=== PATIENT | female | born 1945 | race Caucasian/White ===

== ENCOUNTER 2018-10-24 01:18 | Outpatient (CLI) | payer MEDICARE, SELFPAY ==
--- NOTE | 2018-10-24 14:44 | DI.CTLCSR_ITS ---
SYMPTOM/DIAGNOSIS: TOBACCO USE DISORDER, F17.209, SMOKER, F17.210, Z87.[address]: Comparison is made with 10/17/17. Aortic and coronary artery calcifications are seen. There is mild left ventricular and left atrial enlargement. No pleural or pericardial effusions are seen. There is no evidence of adenopathy. The visualized portions of the upper abdomen are unremarkable. There are mild changes of centrilobular emphysema. No infiltrates are present. There is a stable tiny peripheral nodule in the left lower lobe. No new nodules are seen. There are no suspicious bony abnormalities. IMPRESSION: Lung Rads, category 2, continued annual low dose screening CT is recommended. Lung-RAD Category: Lung RADS Category 2- Benign Appearance/Behavior Lung- RAD Management of Findings: (follow-up) Continue annual LDCT screening in 12 months
== END 2018-10-24 01:38 ==
PROVIDERS: PCP Family Medicine; Visit Provider Family Medicine
DX: Z12.2 Encounter for screening for malignant neoplasm of respiratory organs (principal); F17.210 Nicotine dependence, cigarettes, uncomplicated; I51.7 Cardiomegaly
CPT/HCPCS: G0297

== ENCOUNTER 2018-11-07 00:25 | Outpatient (CLI) | payer MEDICARE, SELFPAY ==
--- NOTE | 2018-11-07 13:19 | DI.MAMMO_ITS ---
SYMPTOM/DIAGNOSIS: SCREENING, Z12.31 MAMMOGRAMS: Mammograms were interpreted according to the usual protocol including computer analysis with CAD system, tomosynthesis and C view imaging. The breast tissue is of moderate radiodensity. There is no evidence of a mass. There are no suspicious calcifications and there has been no significant interval change when compared with prior images. SUMMARY: No evidence of malignancy, category 1. Yearly screening mammography is recommended. Breast density, category B. SA ASSESSMENT OF FINDINGS: Negative. Category 1. Patient will receive a letter notifying them of these results. BI-RADS category B. There are scattered areas of fibroglandular density.
== END 2018-11-07 00:45 ==
PROVIDERS: PCP Family Medicine; Visit Provider Family Medicine
DX: Z12.31 Encounter for screening mammogram for malignant neoplasm of breast (principal)
CPT/HCPCS: 77063; 77067

== ENCOUNTER 2020-01-04 03:49 | Outpatient (CLI) | payer MEDICARE, SELFPAY ==
--- NOTE | 2020-01-04 13:00 | DI.CTLCSR_ITS ---
EXAM: CT CHEST LUNG CANCER SCREEN CLINICAL HISTORY: SMOKER, F17.210 TECHNIQUE: COMPARISON: CT CT CHEST LUNG CANCER SCREEN from 10/24/2018 FINDINGS: CT examination of the chest was performed utilizing low-dose lung cancer screening protocol without c ontrast administration. Examination is compared with prior chest CT of October 24, 2018. Previous exam ination showed a 3 millimeter left lower lobe nodule. This nodule is again noted and unchanged in co mparison with the prior study. Very faint ground-glass opacity noted in the lingula, unchanged from prior study. No new nodule or consolidation seen. Moderate diffuse central lobular emphysema again noted. There is no evident mediastinal or hilar adenopathy. Tracheobronchial tree appears intact. No pleur al effusion. Thoracic aorta is of normal diameter. Coronary artery calcifications are noted. No ca rdiomegaly. Visualized portions of the liver, spleen, pancreas, adrenals, and kidneys are unremarkable. IMPRESSION: 3 millimeter stable left lower lobe intrapulmonary nodule. Lung RADS Cat 2 - Benign Appearance / Behavior: Nodules with a very low likelihood of becoming a clin ically active caner due to size or lack of growth Resume annual screening with low-dose chest CT in 12 months.
--- NOTE | 2020-01-04 13:15 | DI.DEXA_ITS ---
EXAM: XR DEXA BONE DENSITY W/WO LORRIE CLINICAL HISTORY: SCREENING FOR OSTEOPOROSIS, Z78.0,[facility],Z00.00 TECHNIQUE: COMPARISON: No exams were available for comparison FINDINGS: DEXA scan was performed according to the usual protocol. Please see the accompanying data sheets. Findings for lumbar spine scanning are T-score -0.7 prior study of February 2013 showed lumbar T-score -0 .2. Findings for left hip scanning are T-score -1.5 with left femoral neck T-score -1.9. Prior study of February 2013 showed left hip T-score -0.8. Left forearm scanning shows T-score -0.4, prior study of February 2013 showed left forearm T-score 0.2. IMPRESSION: Findings consistent with osteopenia according to the WHO criteria. The lateral vertebral scanogram shows no evidence of a vertebral compression fracture.
== END 2020-01-04 04:09 ==
PROVIDERS: PCP Family Medicine; Visit Provider Family Medicine
DX: Z12.2 Encounter for screening for malignant neoplasm of respiratory organs (principal); F17.210 Nicotine dependence, cigarettes, uncomplicated; R91.1 Solitary pulmonary nodule; J43.8 Other emphysema; M85.88 Other specified disorders of bone density and structure, other site; Z78.0 Asymptomatic menopausal state
CPT/HCPCS: 77080; G0297

== ENCOUNTER 2020-03-27 11:12 | Outpatient (REF) | payer MEDICARE, SELFPAY ==
[2020-03-27 14:57] LABS: ALT 36 U/L (14-59); AST 27 U/L (15-37); Alkaline Phosphatase 73 U/L (46-116); BUN 10 mg/dL (7-18); Bilirubin, Total 0.7 mg/dL (0.2-1.0); CREATININE 0.63 mg/dL (0.55-1.02); Calcium 9.6 mg/dL (8.5-10.1); Chloride 102 mmol/L (98-107); Glucose 98 mg/dL (74-106); Potassium 4.2 mmol/L (3.5-5.1); Sodium 141 mmol/L (136-145); TSH (W/Ref FT4) 0.91 uIU/mL (0.36-3.74); Total Protein 7.6 g/dL (6.4-8.2)
[2020-03-27 15:10] LABS: Vitamin D 25 Total 23.9 ng/ml (30-100)
[2020-03-28 09:12] LABS: Parathyroid Hormone,Intact 50 pg/mL (19-88)
== END 2020-03-27 11:32 ==
LOC: NCHCN 11:12
PROVIDERS: PCP Family Medicine; Visit Provider Family Medicine
DX: L65.9 Nonscarring hair loss, unspecified (principal); M85.80 Other specified disorders of bone density and structure, unspecified site
CPT/HCPCS: 80053; 82306; 83970; 84100; 84443

== ENCOUNTER 2020-04-11 04:02 | Outpatient (CLI) | payer MEDICARE, SELFPAY ==
--- NOTE | 2020-04-11 | DI.US_ITS ---
EXAM: US PELVIS TRANSVAGINAL CLINICAL HISTORY: LLQ ABD PAIN,R10.32,INTERMITTENT FULLNESS, BLOATING, TECHNIQUE: Transabdominal and transvaginal imaging was performed using standard protocol. COMPARISON: US PELVIS TRANSVAG from 03/06/2013 CT CHEST - LUNG CANCER SCREENING from 10/17/2017 FINDINGS: KIDNEYS: Kidneys are symmetric in size. No evidence of renal calculi. No evidence of hydronephrosis. No renal mass or cyst identified. UTERUS: Anteverted. Uterus measures 6.0 x 2.7 x 3.9 cm. Endometrium: Less than 2 millimeters in thickness. 4 x 5 millimeter subendometrial cyst is seen. Myometrium: Unremarkable. Cervix: Unremarkable. OVARIES: Right: Cyst or mass: None. Left: Cyst or mass: None. DOPPLER: Color: Symmetric and uniform flow to both ovaries. No hyperemia. Duplex: Normal ovarian arterial waveforms visualized. CUL-DE-SAC: Free fluid: None. IMPRESSION: Small subendometrial cyst. No endometrial thickening. No ovarian cyst or mass. DATA REPOSITORY:
== END 2020-04-11 04:22 ==
PROVIDERS: PCP Family Medicine; Visit Provider Family Medicine
DX: N85.8 Other specified noninflammatory disorders of uterus (principal)
CPT/HCPCS: 76830; 76856

== ENCOUNTER 2020-04-16 01:11 | Outpatient (CLI) | payer MEDICARE, SELFPAY ==
--- NOTE | 2020-04-16 | DI.MAMMO_ITS ---
EXAM: MAMMO SCREENING CLINICAL HISTORY: SCREENING, [facility],Z00.00 TECHNIQUE: Mammograms were interpreted according to the usual protocol including computer analysis w [employer] CAD system, tomosynthesis and C-view imaging. COMPARISON: FINDINGS: The breasts are of moderate density with fairly symmetrical distribution fibroglandular tissue. No d ominant mass or clumped microcalcification is identified in either breast. The current examination i s compared with previous examinations including October 2018 and there has been no gross interval mckinney e in appearance in comparison with the prior studies. IMPRESSION: No specific evidence of malignancy at this time. Routine screening examinations are suggested at ye britney intervals due to the family history of breast carcinoma. BI-RADS Cat 1 - Negative Breast Density - Category B - Scattered areas of fibroglandular density
== END 2020-04-16 01:31 ==
PROVIDERS: PCP Family Medicine; Visit Provider Family Medicine
DX: Z12.31 Encounter for screening mammogram for malignant neoplasm of breast (principal)
CPT/HCPCS: 77063; 77067

== ENCOUNTER 2020-10-06 17:21 | Outpatient (REF) | payer MEDICARE, SELFPAY | END 2020-10-06 17:22 | disposition home or self-care (01) | LOC: NCHCN 17:21 | PROVIDERS: PCP Family Medicine; Visit Provider Family Medicine | DX: E55.9 Vitamin D deficiency, unspecified (principal) | CPT/HCPCS: 82306 ==

== ENCOUNTER 2021-04-09 09:39 | Outpatient (REF) | payer MEDICARE, SELFPAY ==
[2021-04-09 14:59] LABS: HCT 41.3 % (36.0-46.0); HGB 13.8 g/dL (11.2-15.7); MCHC 33.4 % (32.0-36.0); MCV 95.8 fL (80-95); MPV 10.3 fL (8.0-11.0); Platelet Count 258 10^3/uL (130-400); RBC 4.31 10^6/uL (3.93-5.22); RDW 11.8 % (11.7-14.6); RDW-SD 41.6 fL; WBC 7.48 10^3/uL (4.4-10.8)
[2021-04-09 15:09] LABS: ALT 31 U/L (14-59); AST 27 U/L (15-37); Albumin 3.9 g/dL (3.4-5.0); Alkaline Phosphatase 76 U/L (46-116); Anion Gap 10.3 mmol/L (3-11); BUN 14 mg/dL (7-18); Bilirubin, Total 0.5 mg/dL (0.2-1.0); CO2 28.7 mmol/L (21.0-32.0); CREATININE 0.7 mg/dL (0.55-1.02); Calcium 9.5 mg/dL (8.5-10.1); Calculated LDL 90 mg/dL (<100); Chloride 103 mmol/L (98-107); Cholesterol 186 mg/dL (<200); Glucose 90 mg/dL (74-106); HDL Cholesterol 66 mg/dL (40-60); Potassium 4.3 mmol/L (3.5-5.1); Sodium 142 mmol/L (136-145); Total Protein 7.5 g/dL (6.4-8.2); Triglyceride 154 mg/dL (<150)
[2021-04-09 15:29] LABS: Vitamin D 25 Total 44.1 ng/mL (30-100)
== END 2021-04-09 09:40 | disposition home or self-care (01) ==
LOC: LBN 09:39
PROVIDERS: PCP Family Medicine; Visit Provider Family Medicine
DX: E55.9 Vitamin D deficiency, unspecified (principal); F10.10 Alcohol abuse, uncomplicated; M85.80 Other specified disorders of bone density and structure, unspecified site; E78.89 Other lipoprotein metabolism disorders; Z87.11 Personal history of peptic ulcer disease
CPT/HCPCS: 80053; 80061; 82306; 85027; 85025

== ENCOUNTER → 2021-06-24 00:54 | Outpatient (CLI) | payer MEDICARE, SELFPAY ==
--- NOTE | 2021-06-24 09:15 | DI.CTLCSR_ITS ---
Exam(s) CT CHEST LUNG CANCER SCREEN EXAM: CT CHEST LUNG CANCER SCREEN CLINICAL HISTORY: SMOKER F17.210 SMALL NODULE 09/2017,SCREENING FOR LUNG CA. TECHNIQUE: Imaging Protocol: Low Dose Technique CONTRAST MATERIAL: None COMPARISON: CT CHEST - LUNG CANCER SCREENING from 10/17/2017 CT CHEST - LUNG CANCER SCREENING from 10/17/[address] CHEST LUNG CANCER SCREEN from 01/04/2020 FINDINGS: CHEST: LUNGS: 2 small nodules in the left lower lobe, both measuring 3 millimeters, remain unchanged. Also again stable is a ground-glass infiltrate in the left upper lobe which measures approximately 1.5 by 1.4 cm. There are no significant findings in the opposite-right lung. There are no pleural effusion s on either side. No focal findings in trachea and mainstem bronchi. MEDIASTINUM: There is no obvious hilar nor mediastinal adenopathy. CARDIAC: Heart size is normal. There is no pericardial effusion.Coronary artery calcification is not ed. Caliber thoracic aorta is upper normal. OTHER: OSSEOUS: No significant osseous lesions.. IMPRESSION: 1. Continued stable appearance of the 3 findings in the left lung, including two 3 millimeter left lo wer lobe nodules and an unchanged 15 x 14 millimeter ground-glass nodular infiltrate in the left uppe r lobe. 2. No pleural effusions nor intrathoracic adenopathy. Coronary artery calcification noted. 3. Lung RADS Cat 2 - Benign Appearance / Behavior: Nodules with a very low likelihood of becoming a c linically active cancer due to size or lack of growth Lung-RADS 1.0 CATEGORIES: Category 0 - Prior chest CT exam(s) being located for comparison. Category 1 - Annual screening in 12 months. No nodules or definitely benign nodules. Category 2 - Annual screening in 12 months. Benign appearance. Nodules with low likelihood of becomin g active cancer. Category 3 - 6-month follow-up. Probably benign. Short-term follow-up suggested. Nodules with low lik elihood of becoming active cancer. Category 4A - 3-month follow-up and CT/PET if >8 mm in size. Suspicious finding. Findings which requi re additional testing. Category 4B - Findings which require additional testing and tissue sampling. Modifier S- Potentially clinically significant findings (non lung cancer) RADIATION DOSE DELIVERED: 72.62mGy.cm Total DLP 1.84mGy CTDIvol DATA REPOSITORY: All CT scans at this facility are submitted to the National Radiology Data Registry (NRDR) Dose Index Registry (DIR) with the [employer] (ACR). RADIATION OPTIMIZATION: All CT scans at this facility use at least one of these dose optimization te chniques: automated exposure control; mA and/or kV adjustment per patient size (includes targeted exa ms where dose is matched to clinical indication); or iterative reconstruction.
== END ==
PROVIDERS: PCP Family Medicine; Visit Provider Family Medicine
DX: F17.210 Nicotine dependence, cigarettes, uncomplicated (principal); Z12.2 Encounter for screening for malignant neoplasm of respiratory organs; R91.8 Other nonspecific abnormal finding of lung field
CPT/HCPCS: 71271

== ENCOUNTER → 2022-06-28 01:39 | Outpatient (CLI) | payer MEDICARE, SELFPAY ==
--- NOTE | 2022-06-28 08:45 | DI.MAMMO_ITS ---
Exam(s) MAMMO SCREENING EXAM: MAMMO SCREENING CLINICAL HISTORY: SCREENING, Z12.31. TECHNIQUE: Bilateral full field digital CC and MLO mammographic images were obtained with 3D tomosyn thesis and utilizing computer aided detection (CAD). COMPARISON: Prior mammograms were reviewed. FINDINGS: There are no new spiculated masses nor malignant appearing microcalcification groups. Asymmetric density in the left breast is unchanged from prior studies. There is no significant architectural distortion nor skin thickening-retraction. IMPRESSION: No radiographic evidence of malignancy. BI-RADS Category 1 - Negative Breast Density - Category B - Scattered areas of fibroglandular density Breast density Category C or D implies that the patient has dense breast tissue. Dense breast tissue can make it harder to find cancer on a mammogram. Dense breast tissue is also associated with an incr eased risk of breast cancer. This information about the result of the mammogram report was provided to the patient to raise their awareness. Use this report when you speak with the patient about their risks for breast cancer, which includes their family history. At that time, you may recommend additional screening tests (Ultrasoun d or MRI) as these tests may add significant information. A negative radiographic report should not delay biopsy if a dominant or clinically suspicious mass is present. Up to ten percent of cancers are not identified on mammography. A negative report may reinforce clinical impression. Adenosis and dense breasts may obscure an underlying neoplasm. False positive reports average 6 to 10%. Patient will receive a letter notifying them of these results.
--- NOTE | 2022-06-28 09:15 | DI.CTLCSR_ITS ---
Exam(s) CT CHEST LUNG CANCER SCREEN EXAM: CT CHEST LUNG CANCER SCREEN CLINICAL HISTORY: CIGARETTE SMOKER, F17.210. TECHNIQUE: Imaging Protocol: Low Dose Technique CONTRAST MATERIAL: None COMPARISON: CT CT CHEST LUNG CANCER SCREEN from 06/24/2021 FINDINGS: CHEST: LUNGS: There is continued stability of the ground-glass 1.5 x 1.4 cm infiltrate in the left upper lob e. In addition, there is also continued stability in the small previously described 3 millimeter nod ule in the left lower lobe.. There are no new additional nodules nor new infiltrates in either lung field and there are no pleural effusions. No new findings in the trachea and mainstem bronchi.. MEDIASTINUM: There is no obvious hilar nor mediastinal adenopathy. CARDIAC: Heart size is normal. There is no pericardial effusion.Caliber of the thoracic aorta is wit hin normal limits. OTHER: OSSEOUS: No significant osseous lesions.. IMPRESSION: 1. There is continued stable appearance of the previously described left lung findings described abov e. There are no new focal findings in either lung field and there are no pleural effusions nor intra thoracic adenopathy. 2. Lung RADS Cat 2 - Benign Appearance / Behavior: Nodules with a very low likelihood of becoming a c linically active cancer due to size or lack of growth Lung-RADS 1.0 CATEGORIES: Category 0 - Prior chest CT exam(s) being located for comparison. Category 1 - Annual screening in 12 months. No nodules or definitely benign nodules. Category 2 - Annual screening in 12 months. Benign appearance. Nodules with low likelihood of becomin g active cancer. Category 3 - 6-month follow-up. Probably benign. Short-term follow-up suggested. Nodules with low lik elihood of becoming active cancer. Category 4A - 3-month follow-up and CT/PET if >8 mm in size. Suspicious finding. Findings which requi re additional testing. Category 4B - Findings which require additional testing and tissue sampling. Category 4X - Category 3 or 4 nodules with additional features or imaging findings that increases the suspicion of malignancy. Modifier S- Potentially clinically significant findings (non lung cancer) RADIATION DOSE DELIVERED: 72.78mGy.cm Total DLP !Error 1.84mGyCTDIvol DATA REPOSITORY: All CT scans at this facility are submitted to the National Radiology Data Registry (NRDR) Dose Index Registry (DIR) with the [employer] (ACR). RADIATION OPTIMIZATION: All CT scans at this facility use at least one of these dose optimization te chniques: automated exposure control; mA and/or kV adjustment per patient size (includes targeted exa ms where dose is matched to clinical indication); or iterative reconstruction.
== END ==
PROVIDERS: PCP Family Medicine; Visit Provider Family Medicine
DX: F17.210 Nicotine dependence, cigarettes, uncomplicated (principal); Z12.2 Encounter for screening for malignant neoplasm of respiratory organs; R91.8 Other nonspecific abnormal finding of lung field; Z12.31 Encounter for screening mammogram for malignant neoplasm of breast
CPT/HCPCS: 71271; 77063; 77067

== ENCOUNTER 2022-10-05 13:29 | Emergency (ER) | payer MEDICARE, SELFPAY ==
[2022-10-05 13:41] VITALS: BP 138/66; PULSE 67; RESP 18; TEMP 36.2; O2SAT 97
--- NOTE | 2022-10-05 13:45 | DI.RAD_ITS ---
Exam(s) XR WRIST RT COMPLETE EXAM: XR WRIST RT COMPLETE CLINICAL HISTORY: injury/pain. TECHNIQUE: 2D digital imaging was performed. COMPARISON: No exams were available for comparison FINDINGS: 3 views No evidence of acute fracture or dislocation. No significant ulnar variance. Scaphoid unremarkable. No obvious degenerative changes. No erosions. Bone density is age-appropriate. IMPRESSION: No acute osseous findings. DATA REPOSITORY: RADIATION DOSE DELIVERED:
--- NOTE | 2022-10-05 14:10 | ED.GENADUL_ITS ---
Discharge Plan Disposition Patient Disposition: Home Condition: Stable Discharge Details Clinical Impression: Contusion of right wrist Primary Care Provider: Gisela Diaz ED Provider: Parker Kramer Home Meds and New Rx's Prescriptions: Continued citalopram 10 MG tablet 10 mg PO DAILY oxybutynin chloride [Ditropan XL] 5 MG tablet extended release 24hr 10 mg PO DAILY omeprazole 20 MG capsule,delayed release(DR/EC) 20 mg PO DAILY acetaminophen [Tylenol] 325 MG tablet 650 mg PO Q6H PRN atorvastatin 20 mg tablet 20 mg Patient Comments: Take 1 tablet by mouth every evening cholecalciferol (vitamin D3) 50 mcg (2,000 unit) capsule 2,000 Patient Comments: TAKE ONE CAPSULE BY MOUTH DAILY Discharge Instructions Instructions: Contusion in Adults (ED) Additional Instructions: X-ray is unremarkable. Wear splint as needed, advance activity as tolerated. Cool compresses every 2 hours for 20 minutes. Rest and elevate as tolerated. Please watch for new or worsening symptoms and return to the ER for any concerns. Waho-ple-arcumcn Tylenol as directed for discomfort. Lastly, if symptoms are persisting for the next 5-7 days I recommend outpatient follow-up with your primary care provider and discuss outpatient x-ray as repeat x-ray may be indicated. Medical Decision Making This is a 77-year-old female otherwise healthy, reports 2 separate injuries to her right wrist both and Tuesday for sitting on a jar and then knocking it on a door jam. Neuro, vascular, tendon intact. Plan to obtain x-ray and reassess X-ray unremarkable Discussed x-ray findings with patient. Placed into a universal wrist splint. Standard discharge and return precautions were provided. Patient understands, is agreeable to this plan, and has no additional questions or concerns upon discharge. This documentation was generated using [email or web address] system, please disregard any oddities of phrase or misspellings. Medical Records Medical records reviewed: Yes I reviewed the patient's medical records. Imaging Data Radiologic Study: Attestation: I personally reviewed and interpreted this imaging study as follows: Imaging: X-Ray Radiologist's impression: Exam(s) XR WRIST RT COMPLETE EXAM: XR WRIST RT COMPLETE CLINICAL HISTORY: injury/pain. TECHNIQUE: 2D digital imaging was performed. COMPARISON: No exams were available for comparison FINDINGS: 3 views No evidence of acute fracture or dislocation. No significant ulnar variance. Scaphoid unremarkable. No obvious degenerative changes. No erosions. Bone density is age-appropriate. IMPRESSION: No acute osseous findings. HPI General Mode of arrival: ambulatory . Date/Time Provider Initiated Documentation: 10/05/22 13:53 . Limitations to Documentation: no limitations . Information obtained by: patient . HPI Narrative: This is a 77-year-old female who denies significant past medical history, suftu-aqqi-[id number], who was attempting to open a jar on and went to smack the bottom of the can, missed, directly striking her wrist, subsequently the day after hit her wrist on a door jam, overall reports her symptoms are improving but came to the ER to be sure there is nothing more seriously wrong. She denies any other injuries, numbness, tingling, weakness. Has not taken any nerx-yuy-ecdujcm medication for her symptoms. She went to the store to buy an ytly-kqi-cbplrwc splint but bought the splint for the wrong wrist. Related Data Home Medications Medication Instructions Recorded Confirmed Ditropan XL 5 mg tablet,extended 10 mg PO DAILY 04/16/13 12/14/17 release (oxybutynin chloride) citalopram 10 mg tablet 10 mg PO DAILY 04/16/13 10/05/22 omeprazole 20 mg capsule,delayed 20 mg PO DAILY 04/16/13 10/05/22 release Tylenol 325 mg tablet 650 mg PO Q6H PRN 12/02/17 10/05/22 (acetaminophen) atorvastatin 20 mg tablet 20 mg 10/05/22 cholecalciferol (vitamin D3) 50 2,000 10/05/22 mcg (2,000 unit) capsule Allergies Allergy/AdvReac Type Severity Reaction Status Date / Time No Known Allergies Allergy Unverified 10/05/22 13:49 General Stated Complaint: Orthopedic JOE: 4 Review of Systems Constitutional Constitutional: Denies fever(s) and Denies weakness Musculoskeletal Musculoskeletal: Denies deformity, Reports arthralgias, Reports joint swelling, Denies numbness, Reports stiffness and Denies tingling Integumentary/Breasts Skin/Breast: Denies rash Neurologic Neurologic: Denies numbness, Denies tingling and Denies weakness PFSH All Active Problems (Updated 10/05/22 @ 15:01 by PETER Moe) Epigastric pain (Acute) Contusion of right wrist (Acute) Medical History Abnormal weight loss Anxiety Dysplasia of cervix GERD (gastroesophageal reflux disease) History of adenomatous polyp of colon History of gastric ulcer History of melanoma Malignant melanoma of left hip Tobacco use disorder Urinary incontinence Urinary incontinence, mixed Surgical History Colonoscopy - MAC (12/14/17) Dilation and curettage EGD (05/14/16) Ligation of fallopian tube Social History Smoking/Tobacco Use Status: Current every day Smoking risk assessment performed?: Yes Alcohol Intake: current Alcohol Intake frequency: 3 or more drinks per day Alcohol type: wine Drug use: Current Sobriety Substance use type: marijuana Do you feel safe at home: Yes Do you feel safe in your relationship?: Yes Exam Const General: cooperative, healthy appearing, comfortable and no acute distress Orientation: alert and awake HENPR Head: normal to inspection, normocephalic and atraumatic Eyes Conjunctivae: conjunctivae normal Neck Neck: normal visual inspection, trachea midline and supple Resp Effort & Inspection: normal respiratory effort and able to speak in complete sentences Cardio Rate: regular rate Rhythm: regular rhythm Skin General skin exam: no rashes or lesions noted Neuro General: patient alert, patient awake, moves all extremities and no focal motor deficits Cognition: normal cognition Speech: speech normal Gait: normal gait Motor: muscle tone normal throughout Sensory Exam: no sensory deficits noted Extrem General: full ROM and capillary refill normal Elbow/forearm/wrist images: 1. Diffuse mild tenderness, ecchymosis, minimal swelling. Skin intact. Neuro, vascular, tendon intact. No deformity or bony point tenderness. No anatomical snuffbox point tenderness. Normal capillary refill and radial pulse. Psych Appearance: grossly normal Mental Status: mental status grossly normal Course Vital Signs Vital signs: Vital Signs Temperature 36.2 C L 10/05/22 13:41 Pulse 67 10/05/22 13:41 Respiratory Rate 18 10/05/22 13:41 Blood Pressure 138/66 10/05/22 13:41 Pulse Oximetry 97 10/05/22 13:41 Temperature 36.2 C L 10/05/22 13:41 Temperature Source Tympanic 10/05/22 13:41 Pulse 67 10/05/22 13:41 Respiratory Rate 18 10/05/22 13:41 Respiratory Effort Normal 10/05/22 13:47 Blood Pressure 138/66 10/05/22 13:41 Blood Pressure Position Sitting 10/05/22 13:41 Pulse Oximetry 97 10/05/22 13:41 Oxygen Delivery Method Room Air 10/05/22 13:41 Oxygen Flow Rate 0 10/05/22 13:41 Pain Level 7 10/05/22 13:41 PAWSS Have you Been Recently Intoxicated or Drunk Within the Last 30 days?: No Have you Ever Experienced Previous Episodes of Alcohol Withdrawal?: No Have you ever Experienced Withdrawal Seizures?: No Have you ever Experienced Delirium Tremens(DT)s?: No Have you ever undergone Alcohol Rehabilitation Treatment (i.e, inpt ot outpat ient treatment programs)?: No Have you ever Experienced Blackouts?: No Have you ever Combined Alcohol with other Downers within the last 90 days?: No Have you ever Combined Alcohol with any other Substance of Abuse during the last 90 days?: No Positive Blood Alcohol level on Presentation? [PCS.BAL]: No Evidence of Increased Autonomic Activity (i.e. HR>120, tremor, sweating, carley tation, nausea)?: No Result: 0
[2022-10-05 14:53] VITALS: BP 131/75; PULSE 64; RESP 16; TEMP 36.7; O2SAT 97
== END 2022-10-05 15:18 | disposition home or self-care (01) ==
PROVIDERS: Emergency Provider Physician Assistant; PCP Family Medicine
DX: S60.211A Contusion of right wrist, initial encounter (principal); W22.8XXA Striking against or struck by other objects, initial encounter; Y93.89 Activity, other specified
CPT/HCPCS: 99283; 73110; 99282

== ENCOUNTER 2023-03-05 13:33 | Outpatient (REF) | payer MEDICARE, SELFPAY ==
[2023-03-05 17:05] LABS: Abs Immature Grans 0.02 10^3/uL (0.0-0.06); Absolute Basophil Count 0.03 10^3/uL (0.0-0.2); Absolute Eosinophil Count 0.07 10^3/uL (0.0-0.7); Absolute Lymphocyte Count 1.19 10^3/uL (1.2-3.4); Absolute Monocyte Count 1.13 10^3/uL (0.1-0.8); Absolute Neutrophil Count 4.38 10^3/uL (1.2-6.7); Basophils % 0.4; HCT 37.8 % (36.0-46.0); HGB 13.1 g/dL (11.2-15.7); Immature Grans % 0.3; Lymphocytes % 17.4; MCH 32.2 pg (27.0-33.0); MCHC 34.7 % (32.0-36.0); MCV 93 fL (80-95); MPV 10.2 fL (8.0-11.0); Monocytes % 16.6; Neutrophils % 64.3; Platelet Count 234 10^3/uL (130-400); RBC 4.07 10^6/uL (3.93-5.22); RDW 11.7 % (11.7-14.6); RDW-SD 40.2 fL; WBC 6.82 10^3/uL (4.4-10.8)
[2023-03-05 17:17] LABS: ALT 20 U/L (14-59); AST 18 U/L (15-37); Albumin 3.4 g/dL (3.4-5.0); Alkaline Phosphatase 90 U/L (46-116); Anion Gap 8.9 mmol/L (3-11); BUN 3 mg/dL (7-18); Bilirubin, Total 0.4 mg/dL (0.2-1.0); CO2 27.1 mmol/L (21.0-32.0); CREATININE 0.6 mg/dL (0.55-1.02); Calcium 9.2 mg/dL (8.5-10.1); Chloride 103 mmol/L (98-107); Estimated GFR 92.97 (mL/min/1.73m2); Glucose 88 mg/dL (74-106); Lipase 40 U/L (16-77); Potassium 3.6 mmol/L (3.5-5.1); Sodium 139 mmol/L (136-145); Total Protein 6.8 g/dL (6.4-8.2)
== END 2023-03-05 13:34 | disposition home or self-care (01) ==
LOC: LBN 13:33
PROVIDERS: PCP Family Medicine; Visit Provider Nurse Practitioner Family
DX: R19.7 Diarrhea, unspecified (principal)
CPT/HCPCS: 80053; 83690; 85025

== ENCOUNTER 2023-03-13 12:04 | Emergency (ER) | payer MEDICARE, SELFPAY ==
[2023-03-13 12:07] VITALS: BP 122/66; PULSE 60; RESP 18; TEMP 36.8; O2SAT 99
[2023-03-13 13:31] VITALS: BP 125/77; PULSE 53; RESP 20; TEMP 36.3; O2SAT 96
[2023-03-13 13:53] VITALS: BP 134/77; PULSE 73; RESP 16; O2SAT 95
--- NOTE | 2023-03-13 14:00 | DI.CT_ITS ---
Exam(s) CT ABDOMEN PELVIS W EXAM: CT ABDOMEN PELVIS W CLINICAL HISTORY: RLQ abdominal Mass, Abd Pain TECHNIQUE: Imaging Protocol: Axial computed tomography images with coronal and sagittal reformatted images were created and reviewed CONTRAST MATERIAL: Intravenous: Omnipaque 350 Contrast volume:100 mL Oral: No COMPARISON: CT CHEST WITH CONTRAST from 08/24/2016 FINDINGS: ABDOMEN: Lung Bases: Coronary artery calcifications are present. Liver: Normal density. No measurable mass. Portal, Superior Mesenteric, and Splenic Veins: Unremarkable. Gallbladder and Biliary Tract: No radiodense calculus or dilation. Pancreas: Normal density, no abnormal calcifications or inflammatory process. Spleen: Normal. Adrenals: Stable left adrenal nodule likely representing adenoma. Kidneys: Normal size, contour and axis. No radiodense stones or obstructive uropathy. No masses seen. Abdominal Aorta: Abdominal portion non-dilated. Atherosclerosis. Bowel: There is a right inguinal hernia containing a portion of the cecum. There is a question of mi ld bowel wall thickening involving the terminal ileum and cecum. There is a normal appendix present. There is no evidence of bowel obstruction. Peritoneal Cavity: No ascites, collection or mesenteric inflammatory response. No free air. Lymph Nodes: Within normal limits. Bones: Within normal limits for the patient's age. Soft Tissues: There is a small fat containing umbilical hernia. There is a small fat containing left inguinal hernia. PELVIS: Bladder: Symmetric distention, no gross wall thickening. Reproductive Organs: Unremarkable as visualized. Lymph Nodes: Within normal limits. Bones: Within normal limits for the patient's age. IMPRESSION: 1. Right inguinal hernia containing component of the cecum terminal ileum and proximal appendix. The re is question of mild thickening of the wall of the involve cecum and terminal ileum. No evidence o f bowel obstruction. There is a normal appendix. 2. Stable left adrenal nodule likely reflecting an adenoma. No follow-up is recommended. RADIATION DOSE DELIVERED: 520.82mGy.cm Total DLP DATA REPOSITORY: All CT scans at this facility are submitted to the National Radiology Data Registry (NRDR) Dose Index Registry (DIR) with the [employer] (ACR). RADIATION OPTIMIZATION: All CT scans at this facility use at least one of these dose optimization te chniques: automated exposure control; mA and/or kV adjustment per patient size (includes targeted exa ms where dose is matched to clinical indication); or iterative reconstruction.
--- NOTE | 2023-03-13 14:10 | ED.GENADUL_ITS ---
Discharge Plan Discharge Details Chief Complaint: Abd Prob Primary Care Provider: Gisela Diaz ED Provider: Robson Anderson Home Meds and New Rx's Prescriptions: No Action citalopram 10 MG tablet 10 mg PO DAILY oxybutynin chloride [Ditropan XL] 5 MG tablet extended release 24hr 10 mg PO DAILY omeprazole 20 MG capsule,delayed release(DR/EC) 20 mg PO DAILY acetaminophen [Tylenol] 325 MG tablet 650 mg PO Q6H PRN atorvastatin 20 mg tablet 20 mg Patient Comments: Take 1 tablet by mouth every evening cholecalciferol (vitamin D3) 50 mcg (2,000 unit) capsule 2,000 Patient Comments: TAKE ONE CAPSULE BY MOUTH DAILY Medical Decision Making <Vicki Gallegos NP - Last Filed: 03/13/23 17:13> 78-year-old female presents to the ER with a chief complaint of right lower quadrant abdominal mass which she noticed got worse Tuesday or of last week. She was seen at urgent care a week ago Tuesday and was diagnosed with viral gastroenteritis for some diarrhea. The diarrhea has since resolved. She does have a approximately 5 x 5 cm mass palpated to her right lower quadrant which is hard and tender with palpation no surrounding induration erythema. She reports that she did have 10 years of hormone replacement therapy, and last saw [facility] 4 years ago. She denies any problems urinating or burning with urination. Denies any current fever or chills. No other associated symptoms or complaints. Past medical history includes malignant melanoma of left hip, gastric ulcer, adenomatous polyp of colon, GERD, dysplasia of cervix, anxiety and abnormal weight loss. Work-up ordered including CBC CMP, urinalysis CT abdomen pelvis with contrast. BMP was drawn 10 days ago at urgent care. BUN/creatinine in GFR within normal limits. Differential diagnosis includes but not limited to metastatic cancer, ovarian cyst, ovarian torsion, bowel obstruction. Care is to be handed off to oncoming provider Bryce Anderson NP. At the time of signout labs are pending, CT shows hernia. Discussed patient case in details with me he verbalizes understanding. Medical Records Medical records reviewed: Yes I reviewed the patient's medical records. <Robson Anderson NP - Last Filed: 03/13/23 18:24> 78-year-old female presents to the ER with a chief complaint of right lower quadrant abdominal mass which she noticed got worse Tuesday or of last week. She was seen at urgent care a week ago Tuesday and was diagnosed with viral gastroenteritis for some diarrhea. The diarrhea has since resolved. She does have a approximately 5 x 5 cm mass palpated to her right lower quadrant which is hard and tender with palpation no surrounding induration erythema. She reports that she did have 10 years of hormone replacement therapy, and last saw [facility] 4 years ago. She denies any problems urinating or burning with urination. Denies any current fever or chills. No other associated symptoms or complaints. Past medical history includes malignant melanoma of left hip, gastric ulcer, adenomatous polyp of colon, GERD, dysplasia of cervix, anxiety and abnormal weight loss. Work-up ordered including CBC CMP, urinalysis CT abdomen pelvis with contrast. BMP was drawn 10 days ago at urgent care. BUN/creatinine in GFR within normal limits. Differential diagnosis includes but not limited to metastatic cancer, ovarian cyst, ovarian torsion, bowel obstruction. Care is to be handed off to oncoming provider Bryce Anderson NP. At the time of signout labs are pending, CT shows hernia. Discussed patient case in details with me he verbalizes understanding. 1600-please see progress note for further documentation of care HPI <Vicki Gallegos NP - Last Filed: 03/13/23 17:13> General Mode of arrival: ambulatory . Date/Time Provider Initiated Documentation: 03/13/23 13:39 . Information obtained by: patient, RN notes reviewed and old records reviewed . HPI Narrative: 78-year-old female presents to the ER with a chief complaint of right lower quadrant abdominal mass which she noticed got worse Tuesday or of last week. She was seen at urgent care a week ago Tuesday and was diagnosed with viral gastroenteritis for some diarrhea. The diarrhea has since resolved. She does have a approximately 5 x 5 cm mass palpated to her right lower quadrant which is hard and tender with palpation no surrounding induration erythema. She reports that she did have 10 years of hormone replacement therapy, and last saw [facility] 4 years ago. She denies any problems urinating or burning with urination. Denies any current fever or chills. No other associated symptoms or complaints. Past medical history includes malignant melanoma of left hip, gastric ulcer, adenomatous polyp of colon, GERD, dysplasia of cervix, anxiety and abnormal weight loss. Related Data Home Medications Medication Instructions Recorded Confirmed Ditropan XL 5 mg tablet,extended 10 mg PO DAILY 04/16/13 12/14/17 release (oxybutynin chloride) citalopram 10 mg tablet 10 mg PO DAILY 04/16/13 10/05/22 omeprazole 20 mg capsule,delayed 20 mg PO DAILY 04/16/13 10/05/22 release Tylenol 325 mg tablet 650 mg PO Q6H PRN 12/02/17 10/05/22 (acetaminophen) atorvastatin 20 mg tablet 20 mg 10/05/22 cholecalciferol (vitamin D3) 50 2,000 10/05/22 mcg (2,000 unit) capsule Allergies Allergy/AdvReac Type Severity Reaction Status Date / Time No Known Allergies Allergy Unverified 10/05/22 13:49 General Stated Complaint: Abd Prob JOE: 3 Review of Systems <Vicki Gallegos NP - Last Filed: 03/13/23 17:13> All systems reviewed & are unremarkable except as noted in HPI and below Gastrointestinal Gastrointestinal: Reports as per HPI PFSH <Vicki Gallegos NP - Last Filed: 03/13/23 17:13> All Active Problems (Updated 11/05/22 @ 00:02 by PERRI ARAUJO) Epigastric pain (Acute) Medical History Abnormal weight loss Anxiety Dysplasia of cervix GERD (gastroesophageal reflux disease) History of adenomatous polyp of colon History of gastric ulcer History of melanoma Malignant melanoma of left hip Tobacco use disorder Urinary incontinence Urinary incontinence, mixed Surgical History Colonoscopy - MAC (12/14/17) Dilation and curettage EGD (05/14/16) Ligation of fallopian tube Social History Smoking/Tobacco Use Status: Current every day Smoking risk assessment performed?: Yes Alcohol Intake: current Alcohol Intake frequency: 3 or more drinks per day Alcohol type: wine Drug use: Occasionally Substance use type: marijuana Housing: house Do you feel safe at home: Yes Do you feel safe in your relationship?: Yes Exam <Vicki Gallegos NP - Last Filed: 03/13/23 17:13> Narrative Exam Narrative: Constitutional: Alert and oriented x3. Appears stated age. Normal body habitus. Head: Normocephalic, no trauma. Eyes: Pupils PERRL, Red reflex noted, EOM's intact. Eyelids symmetrical without lesions, discharge, or swelling. ENT: Bilateral TM's WNL, External ear normal to inspection, no mastoid TTP, swelling, or erythema, Nasal turbinates WNL, no nasal discharge. Wearing dentures, Posterior pharynx WNL, no exudate. Chest: RRR, Normal S1, S2, distal pulses intact. Resp: Lungs clear to auscultation bilaterally, no wheezes, rales, or rhonchi. Abdomen: Soft, non-distended, hypoactive bowel sounds all 4 quadrants, she does have a large approximately 5 x 5 cm palpable hard mass which is tender to palpation. No ecchymosis no surrounding erythema or induration. Musculoskeletal: Normal gait, 5/5 strength to all four extremities. Skin: No suspicious rashes or lesions. Capillary refill less than 2 sec. Neurologic: Cranial nerves II-XII intact. Alert and oriented x 3. Motor: No deficits noted. Sensory: Intact bilaterally all 4 extremities. Hematologic/Lymphatic: No ecchymosis, no lymphadenopathy. Course <Vicki Gallegos NP - Last Filed: 03/13/23 17:13> Vital Signs Vital signs: Vital Signs Temperature 36.8 C 03/13/23 12:07 Pulse 60 03/13/23 12:07 Respiratory Rate 18 03/13/23 12:07 Blood Pressure 122/66 03/13/23 12:07 Pulse Oximetry 99 03/13/23 12:07 Temperature 36.3 C L 03/13/23 13:31 Temperature Source Oral 03/13/23 13:31 Pulse 73 03/13/23 13:53 Respiratory Rate 16 03/13/23 13:53 Respiratory Effort Normal, Non-Labored 03/13/23 12:13 Blood Pressure 134/77 03/13/23 13:53 Blood Pressure Position Sitting 03/13/23 12:07 Pulse Oximetry 95 03/13/23 13:53 Oxygen Delivery Method Room Air 03/13/23 13:31 Oxygen Flow Rate 0 03/13/23 13:31 Sign Out <Vicki Gallegos NP - Last Filed: 03/13/23 17:13> Sign Out Data: Sign Out Comment: Pending CT result and surgery referral and/or consultation. Mass right lower abdomen. Last updated by Vicki Gallegos NP at 03/13/23 16:37
[2023-03-13 14:42] LABS: Bilirubin Negative (Negative); Blood Trace-intact (Negative); Clarity Clear (Clear); Glucose Negative (Negative); Ketones Negative (Negative); Leukocyte Esterase Trace (Negative); Nitrite Negative (Negative); Specific Gravity 1.015 (1.005-1.025); Urobilinogen 0.2 mg/dL (Up to 0.2)
[2023-03-13 14:57] LABS: Bacteria Rare HPF (Negative); C & S Indicated? No/Sq. Contamination; Casts Negative LPF (Negative); Crystals Negative HPF (Negative); Epithelial Cells Many HPF (Negative); Mucus Negative (Negative); RBC 0-2 HPF (0-2)
[2023-03-13] MEDS: Normal Saline - Diluent 50 ML VIAL IJ (15:28)
[2023-03-13] MEDS: Omnipaque 350 MG/ML 100 ML BTL IJ (15:29)
[2023-03-13] MEDS: Normal Saline Flush 10 ML SYR IVP (15:30)
--- NOTE | 2023-03-13 16:31 | DI.VRAD_ITS ---
PROCEDURE INFORMATION: Exam: CT Abdomen And Pelvis With Contrast Exam date and time: 03/13/2023 3:30 PM Age: 78 years old Clinical indication: Other: Rlq abdominal mass, abd pain TECHNIQUE: Imaging protocol: Computed tomography of the abdomen and pelvis with contrast. Contrast material: OMNIPAQUE 350; Contrast volume: 100 ml; Contrast route: INTRAVENOUS (IV); COMPARISON: CT CHEST LUNG CANCER SCREEN 06/28/2022 9:13 AM FINDINGS: Liver: Normal. No mass. Gallbladder and bile ducts: Normal. No calcified stones. No ductal dilation. Pancreas: Normal. No ductal dilation. Spleen: Normal. No splenomegaly. Adrenal glands: Low-density left adrenal lesion, 9 mm. Kidneys and ureters: Normal. No hydronephrosis. Stomach and bowel: Unremarkable. No obstruction. No mucosal thickening. Appendix: No evidence of appendicitis. Intraperitoneal space: Unremarkable. No free air. No significant fluid collection. Vasculature: Severe atherosclerotic change present in the vasculature. Lymph nodes: Unremarkable. No enlarged lymph nodes. Urinary bladder: Unremarkable as visualized. Reproductive: Unremarkable as visualized. Bones/joints: Unremarkable. No acute fracture. Soft tissues: There is a right inferior hernia containing a colonic loop with fecal material. It is either a very inferior spigelian hernia or superior inguinal hernia. This appears to account for the area of palpable concern. Small, fat containing periumbilical hernia. Other findings: There may be some mild antral wall thickening, mild antritis. IMPRESSION: Lower right bowel containing spigelian/inguinal hernia. No evidence for obstruction. Dictated and Authenticated by: Eli East MD. Ordering:JAVAN Cohen MD
[2023-03-13 17:42] LABS: Abs Immature Grans 0.03 10^3/uL (0.0-0.06); Absolute Basophil Count 0.03 10^3/uL (0.0-0.2); Absolute Eosinophil Count 0.07 10^3/uL (0.0-0.7); Absolute Lymphocyte Count 1.66 10^3/uL (1.2-3.4); Absolute Monocyte Count 0.82 10^3/uL (0.1-0.8); Absolute Neutrophil Count 7.64 10^3/uL (1.2-6.7); Basophils % 0.3; Eosinophils % 0.7; HCT 35.6 % (36.0-46.0); HGB 12.2 g/dL (11.2-15.7); Immature Grans % 0.3; Lymphocytes % 16.2; MCH 31.9 pg (27.0-33.0); MCHC 34.3 % (32.0-36.0); MCV 93 fL (80-95); MPV 9.6 fL (8.0-11.0); Neutrophils % 74.5; Platelet Count 262 10^3/uL (130-400); RBC 3.82 10^6/uL (3.93-5.22); RDW 11.5 % (11.7-14.6); RDW-SD 39.2 fL; WBC 10.25 10^3/uL (4.4-10.8)
[2023-03-13 17:59] LABS: ALT 24 U/L (14-59); AST 22 U/L (15-37); Albumin 3.1 g/dL (3.4-5.0); Alkaline Phosphatase 86 U/L (46-116); Anion Gap 7.5 mmol/L (3-11); BUN 5 mg/dL (7-18); Bilirubin, Total 0.4 mg/dL (0.2-1.0); CO2 30.5 mmol/L (21.0-32.0); CREATININE 0.6 mg/dL (0.55-1.02); Calcium 8.9 mg/dL (8.5-10.1); Chloride 105 mmol/L (98-107); Estimated GFR 92.97 (mL/min/1.73m2); Glucose 84 mg/dL (74-106); Magnesium 1.4 mg/dL (1.8-2.4); Potassium 3.5 mmol/L (3.5-5.1); Sodium 143 mmol/L (136-145); Total Protein 6.5 g/dL (6.4-8.2)
--- NOTE | 2023-03-13 18:24 | W.EDPROG ---
Date of service: 03/13/23 Time of Service: 16:00 Medical Decision Making Patient signed out to me pending CT imaging and labs that had an unexpected delay. CT imaging showed a hernia and no other emergent findings. Discussed case with Dr. Joshua who after review of imaging stated that given that patient's pain is tolerable and no severe distress but patient can follow-up on an outpatient basis. I did review patient's labs and patient has no severe significant leukocytosis, magnesium was 1.4 otherwise nondiagnostic labs. Did reassess patient and had no worsening of symptoms so will discharge patient to follow-up with general surgery on an outpatient basis. After discussion of diagnosis and plan of care patient has no further needs, questions, or concerns and states clear understanding to return to the emergency department for any worsening symptoms. This documentation was generated using [employer] system, please disregard any oddities of phrase or misspellings. Imaging Data Radiologic Study: Imaging: CT Scan Radiologist's impression: Exam(s) PROCEDURE INFORMATION: Exam: CT Abdomen And Pelvis With Contrast Exam date and time: 03/13/2023 3:30 PM Age: 78 years old Clinical indication: Other: Rlq abdominal mass, abd pain TECHNIQUE: Imaging protocol: Computed tomography of the abdomen and pelvis with contrast. Contrast material: OMNIPAQUE 350; Contrast volume: 100 ml; Contrast route: INTRAVENOUS (IV); COMPARISON: CT CHEST LUNG CANCER SCREEN 06/28/2022 9:13 AM FINDINGS: Liver: Normal. No mass. Gallbladder and bile ducts: Normal. No calcified stones. No ductal dilation. Pancreas: Normal. No ductal dilation. Spleen: Normal. No splenomegaly. Adrenal glands: Low-density left adrenal lesion, 9 mm. Kidneys and ureters: Normal. No hydronephrosis. Stomach and bowel: Unremarkable. No obstruction. No mucosal thickening. Appendix: No evidence of appendicitis. Intraperitoneal space: Unremarkable. No free air. No significant fluid collection. Vasculature: Severe atherosclerotic change present in the vasculature. Lymph nodes: Unremarkable. No enlarged lymph nodes. Urinary bladder: Unremarkable as visualized. Reproductive: Unremarkable as visualized. Bones/joints: Unremarkable. No acute fracture. Soft tissues: There is a right inferior hernia containing a colonic loop with fecal material. It is either a very inferior spigelian hernia or superior inguinal hernia. This appears to account for the area of palpable concern. Small, fat containing periumbilical hernia. Other findings: There may be some mild antral wall thickening, mild antritis. IMPRESSION: Lower right bowel containing spigelian/inguinal hernia. No evidence for obstruction. Lab Data Lab results reviewed: Yes I reviewed the patient's lab results. Exam Const General: cooperative Orientation: alert, awake and oriented x3 Resp Effort & Inspection: normal respiratory effort and able to speak in complete sentences GI Palpation: soft, no guarding, mass (Just superior to right inguinal canal) other firm and tender, not rigid and tender Auscultation: normal bowel sounds Neuro General: patient alert, patient awake, patient oriented x3, gait normal and moves all extremities Sign Out Sign Out Data: Sign Out Comment: Pending CT result and surgery referral and/or consultation. Mass right lower abdomen. Last updated by Vicki Gallegos NP at 03/13/23 16:37 Discharge Plan Disposition Patient Disposition: Home Discharge Details Clinical Impression: Inguinal hernia Primary Care Provider: Gisela Diaz ED Provider: Robson Anderson Home Meds and New Rx's Prescriptions: No Action acetaminophen [Tylenol Extra Strength] 500 mg tablet 1,000 mg PO Q6H PRN aspirin 325 mg tablet 325 mg PO DAILY citalopram 10 MG tablet 10 mg PO DAILY oxybutynin chloride [Ditropan XL] 5 MG tablet extended release 24hr 10 mg PO DAILY omeprazole 20 MG capsule,delayed release(DR/EC) 20 mg PO DAILY atorvastatin 20 mg tablet 20 mg Patient Comments: Take 1 tablet by mouth every evening cholecalciferol (vitamin D3) 50 mcg (2,000 unit) capsule 2,000 Patient Comments: TAKE ONE CAPSULE BY MOUTH DAILY Discharge Instructions Instructions: Inguinal Hernia (ED) Additional Instructions: As discussed if you have any severe worsening of pain and discomfort, discoloration of your hernia, severe vomiting, or any further concerns for worsening of your condition you should return immediately to the emergency department for reassessment. If you do not hear from the general surgery office please contact them for arrangement of your outpatient follow-up and further discussion of definitive care of your hernia. Referrals: [facility] [Provider Group] (Call tomorrow afternoon if you have not heard from the surgical office to arrange follow-up) Discharge Data Discharge Date/Time-TO BE ENTERED AT DEPARTURE: 03/13/23 18:47
[2023-03-13] MEDS: Magnesium Oxide 400 MG TAB PO (18:45)
== END 2023-03-13 18:47 | disposition home or self-care (01) ==
PROVIDERS: Registered Nurse Emergency; Emergency Provider Nurse Practitioner Family; PCP Family Medicine
DX: R10.31 Right lower quadrant pain (principal); R10.32 Left lower quadrant pain; K40.90 Unilateral inguinal hernia, without obstruction or gangrene, not specified as recurrent
CPT/HCPCS: 80053; 99285; 74177; 81003; 81015; 83735; 85025; 99283; J3490

== ENCOUNTER → 2023-03-15 12:35 | Outpatient (BNVA) | payer MEDICARE, SELFPAY | PROVIDERS: PCP Family Medicine; Referring Provider Family Medicine; Visit Provider Surgery | DX: K40.90 Unilateral inguinal hernia, without obstruction or gangrene, not specified as recurrent (principal) | CPT/HCPCS: 99203; 99214 ==

== ENCOUNTER 2023-04-13 06:36 | Day surgery (SDC) | payer MEDICARE, SELFPAY ==
--- NOTE | 2023-04-12 18:50 | W.ANESPRE ---
General Info Date of Service Date Performed: 04/13/23 Height: 5 ft 3 in Weight: 51.313 kg Body Mass Index (BMI): 20.0 Surgical Procedure: Operation Date: 04/13/23 07:40 Proposed Procedure Side Surgeon p Herniorrhaphy Inguinal w/Mesh Right Ghazal Guerrier MD Meds Allergies and Home Medications Allergies Allergy/AdvReac Type Severity Reaction Status Date / Time No Known Allergies Allergy Verified 04/13/23 06:25 Home Medication Medication Instructions Recorded Ditropan XL 5 mg tablet,extended 10 mg PO DAILY 04/16/13 release (oxybutynin chloride) citalopram 10 mg tablet 10 mg PO DAILY 04/16/13 omeprazole 20 mg capsule,delayed 20 mg PO DAILY 04/16/13 release atorvastatin 20 mg tablet 20 mg PO HS 10/05/22 cholecalciferol (vitamin D3) 50 2,000 mcg PO DAILY 10/05/22 mcg (2,000 unit) capsule acetaminophen 500 mg tablet 1,000 mg PO Q6H PRN 03/15/23 (Tylenol Extra Strength) aspirin 325 mg tablet 325 mg PO DAILY 03/15/23 Current Visit Medications: Current Medications Generic Name Dose Route Start Last Admin Trade Name Freq PRN Reason Stop Dose Admin Acetaminophen 1,000 mg 04/13/23 06:00 Acetaminophen 500 Mg Tab PO 04/13/23 23:59 PREOP PHAN Celecoxib 200 mg 04/13/23 06:00 Celecoxib 200 Mg Cap PO 04/13/23 23:59 PREOP PHAN Gabapentin 300 mg 04/13/23 06:00 Gabapentin 300 Mg Cap PO 04/13/23 23:59 PREOP PHAN Ringer's Solution 1,000 mls @ 80 mls/hr 04/13/23 06:00 IV 04/13/23 23:59 INFUSION PHAN Cefazolin Sodium/Dextrose 2 gm in 50 mls @ 100 mls/hr 04/13/23 06:00 Ancef Duplex IVPB 04/13/23 23:59 PREOP PHAN IV Miscellaneous Supplies 1 each 04/13/23 06:00 Iv Access IV 04/13/23 23:59 DIRECTED PHAN Sodium Chloride 0 ml 04/13/23 06:00 Normal Saline Flush 10 Ml Syr IV 04/13/23 23:59 PRN PRN Sodium Chloride 0 ml 04/13/23 06:00 Normal Saline 10 Ml Vial IJ 04/13/23 23:59 DIRECTED PRN Sterile Water 0 ml 04/13/23 06:00 Water,Injection,Sterile 10 Ml Vial IJ 04/13/23 23:59 DIRECTED PRN PFSH Active Problems Active Problems: Problem Status Onset Code Right inguinal hernia K40.90 Epigastric pain R10.13 Inguinal hernia K40.90 Medical History Medical History Abnormal weight loss Anxiety Dysplasia of cervix GERD (gastroesophageal reflux disease) History of adenomatous polyp of colon History of gastric ulcer History of melanoma Malignant melanoma of left hip Tobacco use disorder Urinary incontinence Urinary incontinence, mixed Surgical History Surgical History Colonoscopy - MAC (12/14/17) Dilation and curettage EGD (05/14/16) Ligation of fallopian tube Tobacco Smoking/Tobacco Use Status: Current every day Tobacco Type: cigarettes Alcohol Alcohol Intake: current Alcohol intake frequency: 3 or more drinks per day Alcohol type: wine Substance Use Substance use: Occasionally Substance use type: marijuana Vital Signs and Lab Results Vital Signs Most Recent Vital Signs in EMR: Temp Pulse Resp BP Pulse Ox 36.7 C 73 17 123/74 97 04/13/23 06:28 04/13/23 06:28 04/13/23 06:28 04/13/23 06:28 04/13/23 06:28 Lab Results Blood Type / Crossmatch: No Data to Display Complete Blood Count: No Data to Display Complete Metabolic Panel: No Data to Display Liver Function Panel: No Data to Display Coagulation Panel: No Data to Display Cardiac Panel: No Data to Display Arterial Blood Gas: No Data to Display Venous Blood Gas: No Data to Display Pancreas Panel: No Data to Display Thyroid Panel: No Data to Display Infectious Disease: No Data to Display Blood Cultures: No Data to Display Toxicology Panel: No Data to Display Imaging and Studies Imaging and Studies Study information below may be from another EMR and interpreted by another provider. Please see original notes in EMR for more complete details. Pulmonary Function Summary: 09/2017: mild obstructive airway dz, no sig bronchodilator response. Anesthesia Assessment and Plan Anesthesia History Personal History: No History of Anesthesia Complications Family History: No Family History of Anesthesia Complications Exercise Tolerance Exercise Tolerance: Metabolic Equivalents>4 Cardiac & Pulmonary Exam Cardiac Exam: Normal S1/S2 Heart Sounds Pulmonary Exam: Clear Bilateral Breath Sounds Implantable Cardiac Device Does patient have a Pacemaker or an ICD?: No Airway Exam Known Difficult Airway: No Mallampati Class: 1 Mouth Opening: Normal (> 3cm) Thyromental Distance: Greater than 3 cm Neck Range of Motion: Full ROM Neck Circumference: Normal Teeth Condition: Normal Dentition and Removable Dentures/Plates Upper ASA Classification ASA Score: ASA 2 Emergency Case?: No NPO Status NPO Status: NPO Clears >2 hours, Solids >8 hours Anesthesia Plan Resuscitation Status: Full Code Anesthesia Technique: General Anesthesia Airway Planned: LMA Pain Management: Surgeon and patient request nerve block Monitors Used: Standard Monitors Preoperative Comments:: 78 yo female for right inguinal hernia repair. Sig PMHx: GERD (omeprazole, well controlled states mostly diet related), anxiety (citalopram), daily smoker/etoh, occ cannabis. Plan: GA, regional anesthesia, preop cocktail (ordered by Chey).
[2023-04-13] VITALS (9 sets, daily range): BP systolic 123–160; BP diastolic 54–85; PULSE 53–73; RESP 9–19; TEMP 36.2–36.7; O2SAT 95–100
--- NOTE | 2023-04-13 06:21 | W.PM.PROGNOT ---
Date of Service Date of service: 04/13/23 Time of Service: 07:09 Assessment and Plan Assessment and plan (1) Right inguinal hernia: Status: Acute Assessment and plan: Mrs Martin is a pleasant 78-year-old female with a right inguinal hernia which on CT scan had cecum, terminal ileum and tip of appendix within the hernia sac.? It was easily reduced today in the office.? I had a long discussion with her and her daughter regarding surgery.? I do feel that this should be repaired.? She did not have any obstructive symptoms when she came into the emergency department.? The patient has a vacation planned with her family coming up and would like to wait until afterwards to have this scheduled.? I think that is reasonable.? We did review risks, benefits and complications of the procedure.? We reviewed the procedure in detail using a pamphlet as well as postoperative course including activity limitations.? I also reviewed with her the signs and symptoms of incarceration for which she should seek immediate medical attention.? Risks, benefits and complications have been reviewed. Complications include but are not limited to bleeding, pain, infection, injury to underlying structures like bowel, recurrence, hematoma, seroma, chronic pain and adverse reaction to the medication.? Questions were entertained and answered to their satisfaction and they wished to proceed. No guarantees were given or implied.? The patient and her daughter had a good understanding of the procedure as well as the risks and benefits.? They asked appropriate questions which I answered.? Proceed with Right inguinal hernia repair with mesh Subjective Subjective Interval history since last seen: I saw Makayla in same-day surgery prior to her procedure. She is doing well. She has had no new symptoms with her hernia. Is still quite uncomfortable. She has not had any new cardiac symptoms like chest pain or palpitations. She is not short of breath. We discussed the procedure again as well as the risks, benefits and complications. She did not have any new questions or concerns. Exam Const General: comfortable and no acute distress Nutritional Appearance: thin Orientation: alert and oriented x3 HENMT Head: normocephalic and atraumatic Resp Effort & Inspection: normal respiratory effort GI Inspection: visible herniation (Right inguinal) Palpation: soft, no hepatosplenomegaly, hernia (right inguinal) and nontender Time Spent with Patient Time Spent with Patient: <25 minutes Time was spent: counseling the patient
--- NOTE | 2023-04-13 06:23 | W.PM.OP ---
Date of service: 04/13/23 Time of Service: 08:19 Operative Note Operative Note DATE OF PROCEDURE: 04/13/23 PRE-OP DIAGNOSIS: Right inguinal hernia POST-OP DIAGNOSIS: same (direct and indirect) PROCEDURE: Right inguinal hernia repair with mesh SURGEON: Ghazal Guerrier METAL FURNITURE PANEL COVERER: Shanna Kerns ANESTHESIA TYPE: General LMA/ETT and Primary Nerve Block (Right TAP block) Refer to Anesthesia Record PATHOLOGY: none sent COMPLICATIONS: None Patient was transported to: PACU Patient's condition: stable Implants: PERFix: [id number] LOT- [id number] 2027-04-18 Indications: Mrs Martin is a pleasant 78-year-old female with a right inguinal hernia which on CT scan had cecum, terminal ileum and tip of appendix within the hernia sac.? It was easily reduced today in the office.? I had a long discussion with her and her daughter regarding surgery.? I do feel that this should be repaired.? She did not have any obstructive symptoms when she came into the emergency department.? The patient has a vacation planned with her family coming up and would like to wait until afterwards to have this scheduled.? I think that is reasonable.? We did review risks, benefits and complications of the procedure.? We reviewed the procedure in detail using a pamphlet as well as postoperative course including activity limitations.? I also reviewed with her the signs and symptoms of incarceration for which she should seek immediate medical attention.? Risks, benefits and complications have been reviewed. Complications include but are not limited to bleeding, pain, infection, injury to underlying structures like bowel, recurrence, hematoma, seroma, chronic pain and adverse reaction to the medication.? Questions were entertained and answered to their satisfaction and they wished to proceed. No guarantees were given or implied.? The patient and her daughter had a good understanding of the procedure as well as the risks and benefits.? They asked appropriate questions which I answered.? Procedure Description: After informed consent was obtained the patient was taken to the operating room and placed in a supine position. Monitors and SCDs were applied and a timeout was done. The patient's name, date of , procedure type, procedure site, allergies to medications, preoperative antibiotic, and DVT prophylaxis were all reviewed. Fire risk was assessed. Next anesthesia did a tap block on the right side under ultrasound guidance. Please see their separate dictation. Once anesthesia was done the abdomen was prepped and draped in a sterile surgical fashion. 0.5% Marcaine was injected into the dermis in the right lower quadrant. An incision was made with a 10 blade in the right lower quadrant. Dissection was done with cautery through the subcutaneous tissues and Too's fascia down to the external oblique fascia. The external ring was identified and the external oblique fascia was opened sharply through the external ring. The cut fascia was grasped with hemostats the cord structures were identified and a [place] drain was placed around them. The ilioinguinal nerve was identified and cut. The round ligament was identified. Fatty tissue was noted which was dissected away. The cecum was also identified and gently reduced back into the abdominal cavity. An XL plug was placed into the indirect defect and secured with 3-0 proline. A flat piece of mesh was then attached to the lacunar ligament using a 2-0 Prolene double armed suture. The mesh was secured laterally and medially with a 2-0 Prolene, with a running suture. The tails of the mesh were wrapped around the cord structures effectively cinching down the internal ring. Once the mesh was secured the tissues were irrigated with some normal saline. No bleeding was identified. The external oblique fascia was reapproximated using 2-0 Vicryl running suture. The Too's fascia was reapproximated using interrupted 3-0 Vicryl. The dermis was reapproximated with a running 4-0 Vicryl. The skin was cleaned and dried and dermabond was applied. The patient was woken up and taken back to recovery in stable condition. There were no immediate complications. Sponge, instrument and needle counts were correct at the end of the case x2.
--- NOTE | 2023-04-13 06:25 | W.PM.DSUDISC ---
Date of service: 04/13/23 Time of Service: 08:17 Discharge Plan Disposition Patient Disposition: Home Discharge Details Reason For Visit: inguinasl hernia Attending Provider: Ghazal Guerrier Primary Care Provider: Gisela Diaz Home Meds and New Rx's Prescriptions: New oxycodone 5 mg tablet 5 mg PO Q6H PRNQty: 14 0RF nicotine 21 mg/24 hr patch 24 hour 1 patch transdermal DAILY Qty: 7 0RF Continued acetaminophen [Tylenol Extra Strength] 500 mg tablet 1,000 mg PO Q6H PRN aspirin 325 mg tablet 325 mg PO DAILY citalopram 10 MG tablet 10 mg PO DAILY oxybutynin chloride [Ditropan XL] 5 MG tablet extended release 24hr 10 mg PO DAILY omeprazole 20 MG capsule,delayed release(DR/EC) 20 mg PO DAILY atorvastatin 20 mg tablet 20 mg PO HS Patient Comments: Take 1 tablet by mouth every evening cholecalciferol (vitamin D3) 50 mcg (2,000 unit) capsule 2,000 mcg PO DAILY Patient Comments: TAKE ONE CAPSULE BY MOUTH DAILY Discharge Instructions Additional Instructions: Activity at Home after surgery: 1. Make sure you walk outside at least 4 times per day 2. You should be able to climb a flight of stairs 3. No driving while in pain or taking pain medications 4. No strenuous activity or heavy lifting for 4 weeks (open surgery) Diet, Nutrition, & wound healin. Avoid alcohol until after you are recovered from your surgery 2. Make sure to eat plenty of lean protein (meat, fish, eggs, cottage cheese, beans) 3. Eat a variety of fruits and vegetables. Eat plenty of high fiber foods to avoid constipation. 4. Drink plenty of liquids to stay hydrated and avoid constipation Pain Medications: 1. Tylenol 650mg every 6 hours as needed and Ibuprofen 600 mg every 6 hours as needed. You may alternate between the 2 medications every 3 hours 2. If a narcotic has been prescribed take as directed only for breakthrough pain For Constipation: 1. Take Milk of Magnesia or MiraLax as needed for constipation Other: 1. You may shower daily. Do not scrub the incisions 2. Do not soak the incisions for 1 week 3. You may alternate ice and heat as needed for pain and swelling Wound Care: 1. Keep the incisions clean and dry Please call our office if you develop: 1. Fevers >101.5 2. Nausea or Vomiting 3. Worsening pain 4. Redness and thick discharge from the wounds If after hours please call the Hospital at and ask to speak to the on-call surgeon Referrals: Ghazal Guerrier MD [ [facility] STAFF PHYSICIAN] - 04/26/23 9:00 am Activity:: as above Remove Dressings/Wound Care:: Do Not Remove Shower/Bathe:: 24 hours Diet:: As Tolerated Discharge Orders Discharge Orders: Discharge Order (Routine); Ordered 04/13/23 Ordered By: Ghazal Guerrier DS: Diagnosis Discharge Diagnosis (1) Right inguinal hernia: Status: Acute Asessment and Plan: The patient is doing well post-op from their [facility] surgery.? They are having no nausea or vomiting. They are tolerating liquids and a snack. The pt is not having any chest pain or SOB.? Their pain is adequately controlled. They have been able to urinate.? ?HEENT:? no eye pain/drainage/redness/swelling. Mild sore throat ?Cardio- NSR, no chest pain, BP stable- see VS record ?Pulm: no sob or productive cough. No hemoptysis ?Incision- dressing is c/d/i w/ no excessive bleeding or drainage ?I discussed with the patient the findings at the time of surgery and the patient?s progress. ?We reviewed expectations at home; what the patient could expect for recovery time, and in the post-operative period.? We discussed the importance of walking to avoid blood clots and pneumonia.? We discussed and reviewed the patient's post-operative wound care and dressing needs.?? We reviewed their step-merchant pain management plan, Rx called to the pharmacy of their choice.? We reviewed activity and limitations-see discharge instructions. We reviewed warning signs, and when to seek medical attention- see d/c instructions.?? Patient was given a postoperative follow-up appointment. Patient verbalized understanding of their postoperative instructions, how do to take care of themselves and their incision, and the pain management plan. Please see discharge instructions.?
[2023-04-13] MEDS: Acetaminophen 500 MG TAB 1000 MG PO (06:36)
[2023-04-13] MEDS: Gabapentin 300 MG CAP PO (06:36)
[2023-04-13] MEDS: Celecoxib 200 MG CAP PO (06:36)
[2023-04-13] MEDS: Lactated Ringers 1,000 ML 80 ML IV (06:45)
[2023-04-13] MEDS: ceFAZolin 2 GM/50 ML BAG IVPB (07:23)
[2023-04-13] MEDS: Bupivacaine 0.25% Pres-Free 30 ML VIAL (07:43)
--- NOTE | 2023-04-13 07:46 | W.ANESNERVE ---
Nerve Block Single Injection Procedure Date and Time Date Performed: 04/13/23 Procedure Start: 07:29 Location Where Procedure Performed Procedure Location: Operating Room Procedure Stop: 07:35 Reason Performed: Postoperative Analgesia Requesting Provider: Ghazal Guerrier Timeout Performed Timeout Performed: Yes Monitoring Used ECG, Blood Pressure, SpO2 and ETCO2 Sterility Sterility: Hand Hygiene, Surgical Cap, Surgical Mask, Sterile Gloves and Chlorhexidine Sedation Given During Procedure Sedation Given (Indicate Dose Given): No Sedation given Patient Mental Status Patient Mental Status: Performed under general anesthesia Nerve Block 1st Nerve Block: Laterality: Right Block Type: TAP Unilateral Ultrasound Image Saved?: Yes Needle / Catheter Used: 100mm SonoPlex II Local Anesthetic Bolus (Indicate Dose Given): Bupivacaine 0.375% Dose:: 10 mL Additives (Indicate Dose Given): Epinephrine to make 1:200,000 (5mcg/ml) Dose:: 50 mcg and Precedex Dose:: 10 mcg Ultrasound: Sterile probe cover and gel used Nerve Stimulator: Not Used Paresthesia: None Procedure Tolerated: No Complications Procedure Outcome: Successful Performed By: Shay Quick
--- NOTE | 2023-04-13 08:43 | W.ANESPOSTOP ---
Postoperative Evaluation Date, Time and Location Date Performed: 04/13/23 Time Performed: 08:43 Patient Location: PACU Vital Signs Most Recent Imported Vital Signs: Most Recent Vital Signs Temp Pulse Resp BP Pulse Ox 36.2 C L 54 L 13 137/61 97 04/13/23 08:36 04/13/23 08:36 04/13/23 08:36 04/13/23 08:36 04/13/23 08:36 Pain Score Most Recent Pain Score: Most Recent Pain Score Pain Level 0 04/13/23 06:28 Assessment Mental Status: Awake (Alert & Oriented to Patient Baseline) Airway and Respiratory Function: Patent airway with normal (patient baseline) respiratory exam Cardiovascular Function: Hemodynamically Stable Hydration Status: Adequately Hydrated Nausea & Vomiting: No Nausea or Vomiting Pain: Pain is tolerable per patient Peripheral Nerve Block: Patient did not receive a nerve block
[2023-04-13] MEDS: oxyCODONE 5 MG TAB PO (09:31)
== END 2023-04-13 10:25 | disposition home or self-care (01) ==
PROVIDERS: PCP Family Medicine; Visit Provider Surgery
PROC: (CPT 49505; principal; 2023-04-13 07:30)
DX: K40.90 Unilateral inguinal hernia, without obstruction or gangrene, not specified as recurrent (principal); K21.9 Gastro-esophageal reflux disease without esophagitis; F17.210 Nicotine dependence, cigarettes, uncomplicated
CPT/HCPCS: 49505; 76942; C1781; J0171; J0690; J1100; J2405; J3475

== ENCOUNTER → 2023-04-26 08:53 | Outpatient (BNVA) | payer MEDICARE, SELFPAY | PROVIDERS: PCP Family Medicine; Referring Provider Family Medicine; Visit Provider Surgery | DX: Z48.817 Encounter for surgical aftercare following surgery on the skin and subcutaneous tissue (principal) ==

== ENCOUNTER → 2023-07-04 00:27 | Outpatient (CLI) | payer MEDICARE, SELFPAY ==
--- NOTE | 2023-07-04 | DI.MAMMO_ITS ---
Exam(s) MAMMO SCREENING EXAM: MAMMO SCREENING CLINICAL HISTORY: SCREENING, Z12.31. TECHNIQUE: Bilateral full field digital CC and MLO mammographic images were obtained with 3D tomosyn thesis and utilizing computer aided detection (CAD). COMPARISON: Prior mammograms were reviewed. FINDINGS: There has been no significant change in the appearance and distribution of the fibroglandular tissue. There are no new spiculated masses nor malignant appearing microcalcification groups. There is no significant architectural distortion nor skin thickening-retraction. IMPRESSION: No radiographic evidence of malignancy. BI-RADS Category 1 - Negative Breast Density - Category B - Scattered areas of fibroglandular density Breast density Category C or D implies that the patient has dense breast tissue. Dense breast tissue can make it harder to find cancer on a mammogram. Dense breast tissue is also associated with an incr eased risk of breast cancer. This information about the result of the mammogram report was provided to the patient to raise their awareness. Use this report when you speak with the patient about their risks for breast cancer, which includes their family history. At that time, you may recommend additional screening tests (Ultrasoun d or MRI) as these tests may add significant information. A negative radiographic report should not delay biopsy if a dominant or clinically suspicious mass is present. Up to ten percent of cancers are not identified on mammography. A negative report may reinforce clinical impression. Adenosis and dense breasts may obscure an underlying neoplasm. False positive reports average 6 to 10%. Patient will receive a letter notifying them of these results.
--- NOTE | 2023-07-04 | DI.CTLCSR_ITS ---
Exam(s) CT CHEST LUNG CANCER SCREEN EXAM: CT CHEST LUNG CANCER SCREEN CLINICAL HISTORY: CURRENT SMOKER, SCREENING FOR LUNG CA, F17.210 TECHNIQUE: Imaging Protocol: Axial computed tomography images with coronal and sagittal reformatted images were created and reviewed. Low dose screening protocol. COMPARISON: CT CT CHEST LUNG CANCER SCREEN from 06/28/2022 FINDINGS: Tracheobronchial tree: No bronchiectasis or mucus plugging.. Mediastinum and Princess: No dominant adenopathy or fluid collection. Pulmonary parenchyma: No consolidation or dominant measurable mass. Moderate emphysematous changes. Lung Nodules: 3 millimeter nodule left lower lobe. No change ground-glass infiltrate left upper lobe . Pleura: No effusion. No pneumothorax. Heart: The heart is not dilated. Severe coronary artery calcifications are seen. Trace pericardial ef fusion versus pleural thickening, stable. Aorta: Thoracic aorta non-dilated. Upper abdomen: Unremarkable. Bones: Degenerative changes in the spine. Soft Tissues: Unremarkable. IMPRESSION: Stable ground-glass nodule left upper lobe. Stable 3 millimeter nodule left lower lobe. Lung RADS Cat 2 - Benign Appearance / Behavior: Nodules with a very low likelihood of becoming a clin ically active cancer due to size or lack of growth Lung-RADS 1.0 CATEGORIES: Category 0 - Prior chest CT exam(s) being located for comparison. Category 1 - Annual screening in 12 months. No nodules or definitely benign nodules. Category 2 - Annual screening in 12 months. Benign appearance. Nodules with low likelihood of becomin g active cancer. Category 3 - 6-month follow-up. Probably benign. Short-term follow-up suggested. Nodules with low lik elihood of becoming active cancer. Category 4A - 3-month follow-up and CT/PET if >8 mm in size. Suspicious finding. Findings which requi re additional testing. Category 4B - Findings which require additional testing and tissue sampling. Category 4X - Category 3 or 4 nodules with additional features or imaging findings that increases the suspicion of malignancy. Modifier S- Potentially clinically significant findings (non lung cancer) RADIATION DOSE DELIVERED: Total DLP DATA REPOSITORY: All CT scans at this facility are submitted to the National Radiology Data Registry (NRDR) Dose Index Registry (DIR) with the [employer] (ACR). RADIATION OPTIMIZATION: All CT scans at this facility use at least one of these dose optimization te chniques: automated exposure control; mA and/or kV adjustment per patient size (includes targeted exa ms where dose is matched to clinical indication); or iterative reconstruction.
== END ==
PROVIDERS: PCP Family Medicine; Visit Provider Family Medicine
DX: F17.210 Nicotine dependence, cigarettes, uncomplicated (principal); Z12.2 Encounter for screening for malignant neoplasm of respiratory organs; Z12.31 Encounter for screening mammogram for malignant neoplasm of breast; R91.1 Solitary pulmonary nodule
CPT/HCPCS: 71271; 77063; 77067

== ENCOUNTER 2024-07-16 18:33 | Outpatient (REF) | payer MEDICARE, SELFPAY ==
--- OUTSIDE RECORDS SUMMARY | 2024-07-16 18:36 | XMS_ITS | Encounter Summary ---
[place] [address] Care Team Providers Care Casket Coverer Name Role Phone Gisela Diaz MD Primary Care Provider [phone] Encounter Details Date Type Department Care Team (Late Contact Info) Description 03/01/2007 Orders Only Dermatology at [address] [phone] Momo Morales MD [address] [place] [address], [facility] [place] [address] Social History Tobacco Use Types Packs/Day Years Used Date Smoking Tobacco: Never Assessed Sex and Gender Information Value Date Recorded Sex Assigned at Not on file Gender Identity Not on file Sexual Orientation Not on file documented as of this encounter Plan of Treatment Upcoming Encounters Date Type Department Care Team (Late Contact Info) Description 05/09/2025 10:30 AM EDT Office Visit Dermatology at [address] [phone] Momo Morales MD [address] [place] [address], [facility] [place] [address] documented as of this encounter Procedures Procedure Name Priority Date/Time Associated Diagnosis Comments SURGICAL PATHOLOGY REPORT Routine 03/01/2007 10:22 PM EDT documented in this encounter Results * Surgical Pathology Report (03/01/2007 10:22 PM EDT) Surgical Pathology Report [id number] ? Location: The signing pathologist has (i) examined the relevant preparation(s) for the specimen(s) and (ii) rendered or confirmed the diagnosis(es). . ?Pathology Surgical Pathology Final Report Clinical Information Specimen Submitted: A - L hip: Excision (1) Clinical History: 1 cm atypical pigmented mole. Clinical Diagnosis: R/O MM. Gross Description Labeled/Fixative : ? Labeled with the patient's name, formalin. Qty/Size/Weight: ?Single, 2.1 x 1.2 x 0.3 cm. Tissue Description: ?? Ellipse of harvey-white skin with a central 1.0 x 0.7-cm ?irregular, asymmetrical, harvey-brown to brown-black ?focally elevated lesion. Sections/Process ing: ??The specimen is inked and serially sectioned. ??The ?ends are submitted in (1); the remainder of the ?specimen submitted in (2-3). ?? (T3) ??[facility] Microscopic Description Slides reviewed, microscopic description not recorded. Diagnosis Specimen: ? Skin of hip. Histologic Type: ?Superficial spreading melanoma. Ulceration: ? Absent. Depth of Invasion: ?0.74 mm. Refugio's Level: ?II. Regression: ? Absent. Vascular Invasion: ?Absent. Perineural Invasion: ?Absent. Microscopic Satellites: Absent. Mitoses per mm2: ?No mitotic figures are identified in the dermal ?component. Tumor infiltrating ??lymphocytes: ?Brisk. Associated Nevus: ? Not identified. Margins: Peripheral Margins: ? 2.1 mm to the closest peripheral margin. Deep Margin: ?3 mm to the deep margin. Pathologic TNM Codes: ?? pT1a pNX pMX CR-0 03/05/07 AJE 03/06/07 Verified by: ? Tanika Rollins MD ?Dermatopatholo gist ?(Electronic Signature) The attending pathologist whose signature appears on this report has reviewed all diagnostic slides and has edited the gross and/or microscopic portion of the report in rendering the final pathologic diagnosis. COLLINS SANCHEZ 03/01/2007 10:2 2 PM EDT Momo Morales MD PATHOLOGY/CYTOLOGY O RDERABLES COLLINS SANCHEZ documented in this encounter Visit Diagnoses Not on filedocumented in this encounter Care Teams Casket Coverer Relationship Specialty Start Date End Date Gisela Diaz MD [address] [place] [address] PCP - General 07/14/10 documented as of this encounter
--- OUTSIDE RECORDS SUMMARY | 2024-07-16 18:36 | XMS_ITS | Encounter Summary ---
[place] [address] Care Team Providers Care Accounting File Clerk Name Role Phone Gisela Diaz MD Primary Care Provider [phone] Reason for Visit * Reason Comments Annual Exam Encounter Details Date Type Department Care Team (Late st Contact Info) Description 05/07/2024 3:30 PM EDT Office Visit Dermatology at [address] [phone] Momo Morales MD [address] [facility], [place] [address] Seborrheic dermatitis; History of malignant melanoma; Nevus Social History Tobacco Use Types Packs/Day Years Used Date Smoking Tobacco: Every Day Smokeless Tobacco: Never Alcohol Use Standard Drinks/Week Comments Yes 0 (1 standard drink = 0.6 oz pur e alcohol) Sex and Gender Information Value Date Recorded Sex Assigned at Not on file Gender Identity Not on file Sexual Orientation Not on file documented as of this encounter Progress Notes * Momo Morales MD - 05/07/2024 3:30 PM EDT Problem: 1. Yearly skin checkup 2. History of malignant melanoma, left hip, February 2011, 0.75 mm Breslow depth 3. History of excessive sun exposure in the past, lived for a time in [place] on [address] [place] follows up today for her yearly skin checkup. She has been doing well and has not noted any new skin lesions of concern. She has been having some issues with tingling of the fingertips of her left hand and some decreased hand strength. Physical examination reveals a pleasant 79-year-old woman who has a benign examination of the face and neck the chest the back the hands arms forearms thighs and calves. She has a well-healed scar without any evidence of recurrent pigmentation at the left hip melanoma excision site. Assessment plan: Benign skin examination 1. Patient reassured about today's benign skin examination 2. Continue sun avoidance precautions 3. Return to clinic in a year for repeat check. History of malignant melanoma left hip February 2011 1. No evidence of recurrence 2. Patient reassured Left hand tingling and decreased hand strength 1. This might represent carpal tunnel syndrome 2. Patient will bring this up with Dr. Harrell when she sees her in June. 3. Discussed the potential referral to neurology for evaluation CC: Gisela Diaz MD documented in this encounter Plan of Treatment Upcoming Encounters Date Type Department Care Team (Late st Contact Info) Description 05/09/2025 10:30 AM EDT Office Visit Dermatology at [facility] [address] [facility] [place] [address] Momo Morales MD [address] [facility], [place] [address] documented as of this encounter Visit Diagnoses Diagnosis Seborrheic dermatitis Seborrheic dermatitis, unspecified History of malignant melanoma Personal history of malignant melanoma of skin Nevus Benign neoplasm of skin, site unspecified documented in this encounter Care Teams Accounting File Clerk Relationship Specialty Start Date End Date Gisela Diaz MD [address] [place] [address] PCP - General 07/14/10 documented as of this encounter
--- OUTSIDE RECORDS SUMMARY | 2024-07-16 18:36 | XMS_ITS | Encounter Summary ---
[place] [address] Care Team Providers Care Data Processing Equipment Repairer Name Role Phone Gisela Diaz MD Primary Care Provider [phone] Reason for Visit * Reason Comments Follow-up annual Encounter Details Date Type Department Care Team (Late st Contact Info) Description 08/09/2014 4:15 PM EST Office Visit Dermatology at [address] [place] [address] Momo Morales MD 580 [facility], [place] [address] History of malignant melanoma Discharge Disposition: Home Social History Tobacco Use Types Packs/Day Years Used Date Smoking Tobacco: Unknown Sex and Gender Information Value Date Recorded Sex Assigned at Not on file Gender Identity Not on file Sexual Orientation Not on file documented as of this encounter Progress Notes * Momo Morales MD - 08/09/2014 5:03 PM EST Problem: 1. Yearly skin checkup. 2. History of malignant melanoma, left hip, February 2011, 0.74 mm Breslow depth. Makayla follows up and has been doing well. She returns for her yearly melanoma/skin checkup. Physical examination today reveals a pleasant 69-year-old woman who has a well-healed melanoma excision site on the left lateral hip. There is no evidence of recurrent pigmentation. Careful examination of the head and the neck, the chest, the back, the hands, arms, forearms, thighs, and calves is benign. She has two seborrheic keratoses, one on the left knee and one on the right calf, and a seborrheic keratosis on the right flank. She has several xie red hemangiomas on the abdomen. Upon deep palpation of the abdomen, she appears to have a lipoma essentially. It is not tender and not otherwise symptomatic. Otherwise careful examination is benign. The patient has several excoriations over the upper central back. She states that these are healing with occasional application of triamcinolone cream. Assessment and Plan: 1. History of malignant melanoma. a. No evidence of recurrence. b. Patient reassured. c. Return in another year for repeat check. 2. History of neurodermatitis. a. Patient is working very hard not to dig and scratch at herself. b. If she starts to itch she uses the triamcinolone cream that I gave her some time ago, and this still works for her. Return to clinic in another year for repeat check. COPY: Gisela Diaz M.D. documented in this encounter Plan of Treatment Upcoming Encounters Date Type Department Care Team (Late st Contact Info) Description 05/09/2025 10:30 AM EDT Office Visit Dermatology at [place] 580 [facility] [place] [address] Momo Morales MD 580 [facility], [place] [address] documented as of this encounter Visit Diagnoses Diagnosis History of malignant melanoma Personal history of malignant melanoma of skin documented in this encounter Care Teams Data Processing Equipment Repairer Relationship Specialty Start Date End Date Gisela Diaz MD [address] [place] [address] PCP - General 07/14/10 documented as of this encounter
--- OUTSIDE RECORDS SUMMARY | 2024-07-16 18:36 | XMS_ITS | Encounter Summary ---
Author Organization [facility] Address [address] [place] [address] Care Team Providers Care Watch Guard Gate Name Role Phone Unknown, Provider Primary Care Provider Jonathan ilminda Encounter Details Date Type Department Care Team (Late st Contact Info) Description 09/23/2011 Results Only [facility] - [facility] ([facility]) [address] [place], [place] [id number] Gisela Rojas MD [address] [facility] [address] [place] [address] Social History Tobacco Use Types Packs/Day Years Used Date Smoking Tobacco: Never Assessed Comments Unknown Sex and Gender Information Value Date Recorded Sex Assigned at Not on file Legal Sex Female 18:55 EST Gender Identity Not on file Sexual Orientation Not on file documented as of this encounter Plan of Treatment Not on file documented as of this encounter Procedures Procedure Name Priority Date/Time Associated Diagnosis Comments PAP TEST- RESULT ONLY Routine 09/23/2011 0:00 EST documented in this encounter Results * PAP TEST- RESULT ONLY (09/23/2011 0:00 EST) Pathology Report: CYTOPATHOLOGY REPORT Reports generated via electronic interface contain original data; however they are lacking the format of the original report. Caution should be taken when reading/interpreti ng unformatted reports. Name: ? YANETH MARTIN ? Accession #: ? [id number] ? : ? 1945 (Age: 66) ??F ?Collect Date: ? 09/23/2011 ? Location: ? [facility] ? Receive Date: ? 09/24/2011 ? Provider: GISELA ROJAS MD Copy to: ? Final Report SPECIMEN ADEQUACY ? Satisfactory for Evaluation - transformation zone component present GENERAL CATEGORIZATION ? Negative for Intraepithelial Lesion or Malignancy ?? Previous Gynecologic Pathology: Yes: Hx abnormal paps Treatment History: LEEP: age 52 Specimen/Source: ??Pap Test, Cervix/Endocervix, ThinPrep Imaging System with manual evaluation Document reviewed and electronically signed by: ? Jeff Pratt, JASSI(ASCP) ? Report ??Date: 09/29/2011 10:40 HPV with Pap Test ? Date Ordered: ? 09/29/2011 ? Status: ?? Signed Out ?Date Complete: ? 10/04/2011 ? By: ??System Interface ? Date Reported: ? 10/04/2011 ? Interpretation RESULT: Negative for HPV types 16, 18, 31, 33, 35, 39, 45, 51, 52, 56, 58, 59, and 68. Comments Document reviewed and electronically signed by: ? System Interface ? Report date: 10/04/2011 By the signature above, the attending physician certifies that he/she has personally conducted a gross and/or microscopic examination of the described specimens and rendered or confirmed the above diagnosis. End of Report [facility] 09/23/2011 09/24/2011 us Gisela Rojas MD PATHOLOGY ORDERABLES Final Resul t Performing Organization Address City/State/[facility] Co de Phone Number [facility] [address] [place] [address] documented in this encounter Visit Diagnoses Not on filedocumented in this encounter Care Teams Watch Guard Gate Relationship Specialty Start Date End Date Unknown, Provider, PCP - General 09/24/11 05/13/13 documented as of this encounter
--- OUTSIDE RECORDS SUMMARY | 2024-07-16 18:36 | XMS_ITS | Encounter Summary ---
Author Organization [facility] Address [address] [place] [address] Care Team Providers Care Sow Manager Name Role Phone Gisela Diaz MD Primary Care Provider Encounter Details Date Type Department Care Team (Latest Contact Info) Description 05/14/2016 7:54 EDT - 05/14/2016 23:59 EDT Hospital Encounter [address] [address] Unknown, Provider, Discharge Disposition: Home or Self Care Social History Tobacco Use Types Packs/Day Years Used Date Smoking Tobacco: Never Assessed Comments Unknown Sex and Gender Information Value Date Recorded Sex Assigned at Not on file Legal Sex Female 18:55 EST Gender Identity Not on file Sexual Orientation Not on file documented as of this encounter Discharge Disposition Disposition Code Departure Means Destination Home or Self Retirement documented in this encounter Plan of Treatment Not on file documented as of this encounter Visit Diagnoses Not on filedocumented in this encounter Care Teams Sow Manager Relationship Specialty Start Date End Date Gisela Diaz MD [address] [place] [address] [address] [place] [address] PCP - General 05/14/13 documented as of this encounter
--- OUTSIDE RECORDS SUMMARY | 2024-07-16 18:36 | XMS_ITS | Encounter Summary ---
[place] [address] Care Team Providers Care Director Of Special Services Name Role Phone Gisela Diaz MD Primary Care Provider [phone] Reason for Visit * Reason Comments Skin Check history malignant me laoma Encounter Details Date Type Department Care Team (Late st Contact Info) Description 12/22/2020 2:45 PM EDT Office Visit Dermatology at [address] [place] [address] Momo Morales MD 580 [facility], [address] A DERMATOLOGY [place], [place] [id number] Nevus; Eczema, unspecified type; Seborrheic dermatitis Social History Tobacco Use Types Packs/Day Years [...] Progress Notes * Momo Morales MD - 12/22/2020 2:45 PM EDT Problem: 1. Yearly skin checkup 2. History of malignant melanoma, left hip, February 2011, 0.75 mm Breslow depth 3. History of excessive sun exposure in the past, lived for a time in [place] Makayla follows up for a yearly skin checkup. She has not noted any new skin lesions of concern. She has been having itching in her frontal parietal scalp. Physical examination was a pleasant 75-year-old woman who has no evidence of recurrent pigmentationat the left hip melanoma excision site. She is a benign examination of the head and the neck the chest the back the hands the arms forearms the thighs and the calves. She has a seborrheic keratosis on the back and calf. The earlobes remain well-healed following the repair. She has mild seborrheic dermatitis present throughout the frontal parietal scalp. Assessment plan: Benign skin examination 1. Patient reassured about her benign skin examination 2. Continue sun avoidance precautions 3. Return to clinic in a year for repeat check Seborrheic dermatitis frontal parietal scalp 1. Patient is symptomatic and pruritic with this 2. We will call in prescription of fluocinolone 0.01% solution apply to scalp on a nightly basis asneeded. Dispense 60 mL with 3 refills. CC: Gisela Diaz MD documented in this encounter Plan of Treatment Upcoming Encounters Date Type Department Care Team (Late st Contact Info) Description 05/09/2025 10:30 AM EDT Office Visit Dermatology at [place] 580 [facility] [place] [address] Momo Morales MD [address] [facility], [place] [address] documented as of this encounter Visit Diagnoses Diagnosis Nevus Benign neoplasm of skin, site unspecified Eczema, unspecified type Seborrheic dermatitis Seborrheic dermatitis, unspecified documented in this encounter Care Teams Director Of Special Services Relationship Specialty Start Date End Date Gisela Diaz MD [address] [place] [address] PCP - General 07/14/10 documented as of this encounter
--- OUTSIDE RECORDS SUMMARY | 2024-07-16 18:36 | XMS_ITS | Encounter Summary ---
[place] [address] Care Team Providers Care Buckle Sorter Name Role Phone Gisela Diaz MD Primary Care Provider Encounter Details Date Type Department Care Team (Late st Contact Info) Description 08/01/2015 1:45 PM EST Office Visit Dermatology at [address] [place] [phone] Momo Morales MD 580 [facility], [place] [address] History of malignant melanoma Social History Tobacco Use Types Packs/Day Years Used Date Smoking Tobacco: Unknown Sex and Gender Information Value Date Recorded Sex Assigned at Not on file Gender Identity Not on file Sexual Orientation Not on file documented as of this encounter Progress Notes * Momo Morales MD - 08/01/2015 2:32 PM EST Problems: 1. Yearly skin checkup. 2. History of malignant melanoma, left hip, February 2011, 0.74-mm Breslow depth. Makayla follows up and has been doing well. She is here for a yearly skin checkup. Physical examination reveals a pleasant, now 70-year-old woman who has a well-healed melanoma excision site on the left lateral hip. She has not noted any lesions of concern and certainly no evidence of recurrent pigmentation there. She is itching less and trying hard not to dig and scratch at her skin. Careful examination of the head and neck, chest, back, hands, arms, forearms, thighs, and calves is benign. She has seborrheic keratoses, one on her left knee and one on the right calf and one on the right flank. She has a number of xie red hemangiomas on the abdomen. She continues to have lipomas, two actually now, on the central abdomen. Assessment and Plan: 1. History of malignant melanoma. a. No evidence of recurrence. b. Patient reassured. c. Return to clinic in another year for repeat check. d. Continue sun avoidance precautions. 2. History of neurodermatitis. a. Patient is working very hard not to dig and scratch at herself. b. If she starts to itch, she uses the triamcinolone cream that she has from before, and this still works for her. I also recommended the option of CeraVe cream. c. Reassured about benign examination. COPY: Gisela Diaz M.D. documented in this encounter Plan of Treatment Upcoming Encounters Date Type Department Care Team (Late st Contact Info) Description 05/09/2025 10:30 AM EDT Office Visit Dermatology at [place] 580 [facility] [address] Momo Morales MD [address] [facility], [place] [address] documented as of this encounter Visit Diagnoses Diagnosis History of malignant melanoma Personal history of malignant melanoma of skin documented in this encounter Care Teams Buckle Sorter Relationship Specialty Start Date End Date Gisela Diaz MD [facility] [address] [place] [address] PCP - General 07/14/10 documented as of this encounter
--- OUTSIDE RECORDS SUMMARY | 2024-07-16 18:36 | XMS_ITS | Encounter Summary ---
[place] [address] Care Team Providers Care Chief Knowledge Officer Name Role Phone Giesla Diaz MD Primary Care Provider [phone] Reason for Visit * Reason Comments Skin Check Encounter Details Date Type Department Care Team (Late st Contact Info) Description 05/22/2013 9:45 AM EDT Office Visit Dermatology [address] [facility] [address] [place], [place] [phone] Momo Morales MD [address] [facility] [address], [place] [address] History of malignant melanoma (Primary Dx) Social History Tobacco Use Types Packs/Day Years Used Date Smoking Tobacco: Unknown Sex and Gender Information Value Date Recorded Sex Assigned at Not on file Gender Identity Not on file Sexual Orientation Not on file documented as of this encounter Progress Notes * Momo Morales MD - 05/22/2013 10:25 AM EDT Problem List: 1. History of malignant melanoma, left hip, February 2007, 0.74 mm Breslow depth. 2. Solar dermatitis times several years. Makayla follows up after last being seen in 2009. She is referred back by Dr. Diaz. She was just seen there a few days ago for cellulitis of the upper chest. The patient tends to dig and scratch at herself and has some inflamed papular lesions there and on the left taoism. She has been started on Bactrim. She states that for several years with sun exposure she will get a resultant dermatitis of the sun-exposed areas of the chest and her arms. It is not present today. She has noted any other lesions of concern. Physical examination shows good healing of the left melanoma excision site. There is no evidence of recurrence there. There is no recurrent pigmentation. She has a benign examination of the head and the neck, chest, back, hands, arms, forearms, and thighs. She has excoriated, inflamed papule on the left taoism and scattered excoriated papules on the upper chest. She has diffuse xerosis of the lower extremities. Assessment and Plan: 1. History of malignant melanoma. a. No evidence of recurrence. b. Patient reassured. c. Return to clinic reminder in one year for repeat check. 2. Neurodermatitis/cellulitis. a. Complete course of Bactrim. b. Encouraged patient to try to use emollient cream to prevent itching and thus to prevent scratching of her skin. She still uses the triamcinolone cream that I gave her three years ago p.r.n. for problem areas of itching; it works well for her. 3. Solar dermatitis. a. Recommend return to clinic when/if the problem recurs so that I can evaluate this. COPY: Gisela Diaz M.D. documented in this encounter Miscellaneous Notes * Miscellaneous - Provider, Scanning - 06/04/2013 3:56 PM EDT documented in this encounter Plan of Treatment Upcoming Encounters Date Type Department Care Team (Late st Contact Info) Description 05/09/2025 10:30 AM EDT Office Visit Dermatology at [place] [address] [place] [address] Momo Morales MD 580 [facility] [place] [address] documented as of this encounter Visit Diagnoses Diagnosis History of malignant melanoma- Primary Personal history of malignant melanoma of skin documented in this encounter Care Teams Chief Knowledge Officer Relationship Specialty Start Date End Date Gisela Diaz MD [address] [place] [address] PCP - General 07/14/10 documented as of this encounter
--- OUTSIDE RECORDS SUMMARY | 2024-07-16 18:36 | XMS_ITS | Encounter Summary ---
Author Organization [facility] Address [address] [place] [address] Care Team Providers Care Technical Data Analyst Name Role Phone Gisela Diaz MD Primary Care Provider [phone] Encounter Details Date Type Department Care Team (Latest Contact Info) Description 12/14/2017 7:32 EDT - 12/14/2017 23:59 EDT Hospital Encounter [address] [address] Unknown, Provider, Discharge Disposition: Home or Self [...] Code Departure Means Destination Home or Self Long-Term documented in this encounter Plan of Treatment Not on file documented as of this encounter Visit Diagnoses Not on filedocumented in this encounter Care Teams Technical Data Analyst Relationship Specialty Start Date End Date Gisela Diaz MD [address] [place] [address] [address] [place] [address] PCP - General 05/14/13 documented as of this encounter
--- OUTSIDE RECORDS SUMMARY | 2024-07-16 18:36 | XMS_ITS | Encounter Summary ---
[place] [address] Care Team Providers Care Senior Net Software Engineer Name Role Phone Gisela Diaz MD Primary Care Provider [phone] Encounter Details Date Type Department Care Team (Latest Contact Info) Description 04/04/2023 Travel Social History Tobacco Use Types Packs/Day Years [...] 10:30 AM EDT Office Visit Dermatology at [place] [address] [facility] [place] [phone] Momo Morales MD [address] [facility] [address], [place] [address] documented as of this encounter Visit Diagnoses Not on filedocumented in this encounter Care Teams Senior Net Software Engineer Relationship Specialty Start Date End Date Gisela Diaz MD [facility] [address] [place] [address] PCP - General 07/14/10 documented as of this encounter
--- OUTSIDE RECORDS SUMMARY | 2024-07-16 18:36 | XMS_ITS | Encounter Summary ---
[place] [address] Care Team Providers Care Review Scheduling Coordinator Name Role Phone Gisela Diaz MD Primary Care Provider [phone] Reason for Visit * Reason Comments Skin Check Encounter Details Date Type Department Care Team (Late st Contact Info) Description 11/10/2018 9:00 AM EDT Office Visit Dermatology at [address] [place] [address] Momo Morales MD [address] [facility], [place] [address] History of malignant melanoma; Nevus; Eczema, unspecified type Social History Tobacco Use Types Packs/Day Years Used Date Smoking Tobacco: Every Day Smokeless Tobacco: Never Sex and Gender Information Value Date Recorded Sex Assigned at Not on file Gender Identity Not on file Sexual Orientation Not on file documented as of this encounter Progress Notes * Momo Morales MD - 11/10/2018 9:00 AM EDT Problem: 1. Yearly skin checkup 2. History of malignant melanoma, left hip, February 2011, 0.75 mm Breslow depth 3. History of excessive sun exposure in the past, lived for a time in [place] Makayla follows up and has been doing well. She is here for her yearly skin checkup and has not noted any new lesions of concern. She like a refill of the triamcinolone cream that she gets from the pharmacy in [facility]. It helps her for her intermittent itching. She has beenusing CeraVe cream as well. Physical examination w reveals a pleasant 73-year-old woman who has cutis marmorata of the bilateral lower extremities. She has no evidence of recurrent pigmentation of the left hip melanoma excisionsite. Examination of the face the neck the chest the back the hands the arms forearms the thighs and the calves is benign. She continues to have a seborrheic keratosis on the left anterior thigh and one on the right calf. She does have a tear in her right earlobe from a hearing injury. It is not a through and through injury. Assessment and plan: History of malignant melanoma 1. No evidence recurrence 2. Patient reassured 3. Continue with sun avoidance precautions 4. Return to clinic in a year for recheck. History of neurodermatitis 1. Patient very frequent very hard not to deacon scratch herself she is using CeraVe cream would like a refill of her triamcinolone cream which will will call in for her to her [facility] in [facility] Right earlobe tear 1. We will schedule a 45-minute appointment for repair of this at the patient's convenience. CC: Gisela Diaz MD documented in this encounter Miscellaneous Notes * Addendum Note - Claudia Garcia LPN - 11/10/2018 9:00 AM EDTAddended by: CLAUDIA GARCIA on: 11/10/2018 10:54 AM Modules accepted: Orders documented in this encounter Plan of Treatment Upcoming Encounters Date Type Department Care Team (Late st Contact Info) Description 05/09/2025 10:30 AM EDT Office Visit Dermatology at [place] [address] [facility] [place] [address] Momo Morales MD [address] [facility] [address], [place] [address] documented as of this encounter Visit Diagnoses Diagnosis History of malignant melanoma Personal history of malignant melanoma of skin Nevus Benign neoplasm of skin, site unspecified Eczema, unspecified type documented in this encounter Care Teams Review Scheduling Coordinator Relationship Specialty Start Date End Date Gisela Diaz MD [address] [facility] [address] [place] [address] PCP - General 07/14/10 documented as of this encounter
--- OUTSIDE RECORDS SUMMARY | 2024-07-16 18:36 | XMS_ITS | Encounter Summary ---
Author Organization [facility] [place] Address [address] [place] [address] Care Team Providers Care Body Art Technician Name Role Phone Gisela Diaz MD Primary Care Provider [phone] Encounter Details Date Type Department Care Team (Late st Contact Info) Description 12/14/[address] [facility] [phone] Fabián Murray, DO [address] [place] [address] Social History Tobacco Use Types Packs/Day Years [...] Priority Date/Time Associated Diagnosis Comments SURGICAL PATHOLOGY Routine 12/14/2017 16 :08 EDT documented in this encounter Results * SURGICAL PATHOLOGY (12/14/2017 16:08 EDT) Pathology Report: SURGICAL PATHOLOGY REPORT Reports generated via electronic interface contain original data; however they are lacking the format of the original report. Caution should be taken when reading/interpret ing unformatted reports. Name: ? YANETH MARTIN ? Accession #: ? [id number] ? : ? 1945 (Age: 72) ??F ? Collect Date: ? 12/14/2017 ? Location: ? [facility] ? Receive Date: ? 12/14/2017 ? Provider: FABIÁN MURRAY DO Copy to: ? Final Pathologic Diagnosis: COLON, RECTOSIGMOID POLYP, POLYPECTOMY: - Hyperplastic polyp. Document reviewed and electronically signed by: TRINIDAD HANEY MD Report ??Date: 12/15/2017 18:04 By the signature above, the attending physician certifies that he/she has personally conducted a gross and/or microscopic examination of the described specimens and rendered or confirmed the above diagnosis. Specimen(s) Received: Rectal sigmoid polyp Clinical History: Hx of polyp; clinical diagnosis code: Z86.010 Gross Description: ? Received in formalin labelled with proper patient identification (initials F, M) and rectosigmoid polyp are three pink-harvey tissues (0.1 x 0.1 x 0.1 cm to 0.2 x 0.2 x 0.1 cm). Entirely submitted in 1. PETER Sethi (ASCP) 12/14/2017 4:21 PM End of Report [facility] 12/14/2017 16:0 8 EDT 12/14/2017 16:08 EDT us Fabián Murray DO PATHOLOGY ORDERABLES Final Res ult [facility] [address] [place] [address] documented in this encounter Visit Diagnoses Not on filedocumented in this encounter Care Teams Body Art Technician Relationship Specialty Start Date End Date Gisela Diaz MD [address] [place] [phone] PCP - General 05/14/13 documented as of this encounter
--- OUTSIDE RECORDS SUMMARY | 2024-07-16 18:36 | XMS_ITS | Encounter Summary ---
[place] [address] Care Team Providers Care Regional Liaison Name Role Phone Gisela Diaz MD Primary Care Provider [phone] Encounter Details Date Type Department Care Team (Late Contact Info) Description 12/21/2020 Telephone Dermatology at [address] [place] [phone] Momo Morales MD [address], [place] [address] Social History Tobacco Use Types Packs/Day Years Used Date Smoking Tobacco: Every Day Smokeless Tobacco: Never Alcohol Use Standard Drinks/Week Comments Yes 0 (1 standard drink = 0.6 oz pur e alcohol) Sex and Gender Information Value Date Recorded Sex Assigned at Not on file Gender Identity Not on file Sexual Orientation Not on file documented as of this encounter Miscellaneous Notes * Telephone Encounter - Cherie Pugh - 12/21/2020 3:37 PM EDT I contacted patient today to cancel / visit due to staffing emergency. I was able to speak with patient and she is aware that the appt has been canceled and that we will be contacting her tomorrow to reschedule. documented in this encounter Plan of Treatment Upcoming Encounters Date Type Department Care Team (Late Contact Info) Description 05/09/2025 10:30 AM EDT Office Visit Dermatology at [place] [address] [place] [address] Momo Morales MD [address], [place] [place] [address] documented as of this encounter Visit Diagnoses Not on filedocumented in this encounter Care Teams Regional Liaison Relationship Specialty Start Date End Date Gisela Diaz MD [facility] [address] [place] [address] PCP - General 07/14/10 documented as of this encounter
--- OUTSIDE RECORDS SUMMARY | 2024-07-16 18:36 | XMS_ITS | Encounter Summary ---
Author Organization [facility] Address [address] [place] [address] Care Team Providers Care Biological Sciences Instructor Name Role Phone Gisela Rojas MD Primary Care Provider [phone] Encounter Details Date Type Department Care Team (Late st Contact Info) Description 05/14/2016 Results Only [facility]- [facility] [phone] Fabián Murray, DO [address] [place] [phone] Social History Tobacco Use Types Packs/Day Years [...] Date/Time Associated Diagnosis Comments SURGICAL PATHOLOGY Routine 05/14/2016 8:16 EDT documented in this encounter Results * SURGICAL PATHOLOGY (05/14/2016 8:16 EDT) Pathology Report: SURGICAL PATHOLOGY REPORT Reports generated via electronic interface contain original data; however they are lacking the format of the original report. Caution should be taken when reading/interpret ing unformatted reports. Name: ? YANETH MARTIN ? Accession #: ? [id number] ? : ? 1945 (Age: 71) ??F ? Collect Date: ? 05/14/2016 ? Location: ? [facility] ? Receive Date: ? 05/14/2016 ? Provider: FABIÁN MURRAY DO Copy to: GISELA ROJAS MD ? Final Pathologic Diagnosis: STOMACH, ANTRUM, BIOPSY: - ??Gastric antral mucosa with reactive (chemical) gastropathy. - ??No histological evidence of H. pylori on H&E stain. Document reviewed and electronically signed by: HERBERT NICHOLS MD Report ??Date: 05/17/2016 20:44 By the signature above, the attending physician certifies that he/she has personally conducted a gross and/or microscopic examination of the described specimens and rendered or confirmed the above diagnosis. Specimen(s) Received: Gastric antrum bxs Clinical History: Epigastric pain; clinical diagnosis code: R10.13 Gross Description: ? Received in formalin labelled with proper patient identification (initials F, M) and gastric antrum bx are three pink-harvey tissues (0.3 x 0.3 x 0.1 cm to 0.5 x 0.3 x 0.2 cm). Entirely submitted in block 1. PETER Sheffield (ASCP) 05/17/2016 8:50 AM End of Report [facility] 05/14/2016 8:16 EDT 05/14/2016 8:16 EDT us Fabián Murray DO PATHOLOGY ORDERABLES Final Res ult [facility] [address] [place] [address] documented in this encounter Visit Diagnoses Not on filedocumented in this encounter Care Teams Biological Sciences Instructor Relationship Specialty Start Date End Date Gisela Rojas MD [address] [place] [phone] PCP - General 05/14/13 documented as of this encounter
--- OUTSIDE RECORDS SUMMARY | 2024-07-16 18:36 | XMS_ITS | Encounter Summary ---
Author Organization [facility] Address [address] [place] [address] Care Team Providers Care Binding Dyer Name Role Phone Gisela Rojas MD Primary Care Provider Encounter Details Date Type Department Care Team (Late st Contact Info) Description 10/16/2018 Results Only [facility] [phone] Gisela Rojas MD [address] [place] [address] Social History Tobacco Use Types [...] Diagnosis Comments PAP TEST- RESULT ONLY Routine 10/16/2018 0:00 EST documented in this encounter Results * PAP TEST- RESULT ONLY (10/16/2018 0:00 EST) Pathology Report: CYTOPATHOLOGY REPORT Reports generated via electronic interface contain original data; however they are lacking the format of the original report. Caution should be taken when reading/interpreti ng unformatted reports. Name: ? YANETH MARTIN ? Accession #: ? [id number] ? : ? 1945 (Age: 73) ??F ?Collect Date: ? 10/16/2018 ? Location: ? [facility] ? Receive Date: ? 10/17/2018 ? Provider: GISELA ROJAS MD Copy to: ? Final Report SPECIMEN ADEQUACY ? Satisfactory for Evaluation - transformation zone component present GENERAL CATEGORIZATION ? Negative for Intraepithelial Lesion or Malignancy INTERPRETATION ? Shift in kristofer present suggestive of bacterial vaginosis. Last Menstrual Period: Years Hormonal/Contracep tive status: None Treatment History: LEEP: h/o Other: Additional clinical information: Z00.00 Z12.4 Z11.51 Specimen/Source: ??Pap Test, Cervix, ThinPrep Imaging System with manual evaluation Document reviewed and electronically signed by: ? Nyasia Palumbo, [facility](ASCP) ? Report ??Date: 10/18/2018 14:12 HPV with Pap Test ? Date Ordered: ? 10/18/2018 ? Status: ?? Signed Out ?Date Complete: ? 10/19/2018 ? By: ??System Interface ? Date Reported: ? 10/19/2018 ? Interpretation RESULT: Negative for HPV. No E6 or E7 mRNA is detected from HPV types 16,18,31,33,35, 39,45,51,52,56,58, 59,66, and 68 by jury consultant mediated amplification. Comments Document reviewed and electronically signed by: ? System Interface ? Report date: 10/19/2018 By the signature above, the attending physician certifies that he/she has personally conducted a gross and/or microscopic examination of the described specimens and rendered or confirmed the above diagnosis. End of Report [facility] 10/16/2018 10/17/2018 us Gisela Rojas MD PATHOLOGY ORDERABLES Final Resul t [facility] [address] [place] [address] documented in this encounter Visit Diagnoses Not on filedocumented in this encounter Care Teams Binding Dyer Relationship Specialty Start Date End Date Gisela Rojas MD [address] [place] [phone] PCP - General 05/14/13 documented as of this encounter
--- OUTSIDE RECORDS SUMMARY | 2024-07-16 18:36 | XMS_ITS | Encounter Summary ---
Author Organization [facility] Address [address] [place] [address] Care Team Providers Care Youth Worker Name Role Phone Gisela Diaz MD Primary Care Provider [phone] Encounter Details Date Type Department Care Team (Latest Contact Info) Description 08/21/2013 15:20 EST - 08/21/2013 23:59 EST Hospital Encounter [address] [address] Unknown, Provider, MD Discharge Disposition: Home or Self Care Social [...] Code Departure Means Destination Home or Self Penitentiary documented in this encounter Plan of Treatment Not on file documented as of this encounter Visit Diagnoses Not on filedocumented in this encounter Care Teams Youth Worker Relationship Specialty Start Date End Date Gisela Diaz MD [address] [place] [address] [address] [place] [phone] PCP - General 05/14/13 documented as of this encounter
--- OUTSIDE RECORDS SUMMARY | 2024-07-16 18:36 | XMS_ITS | Encounter Summary ---
[place] [address] Care Team Providers Care Drophammer Operator Name Role Phone Gisela Diaz MD Primary Care Provider [phone] Reason for Visit * Reason Comments Skin Check Encounter Details Date Type Department Care Team (Late st Contact Info) Description 08/17/2016 2:45 PM EST Office Visit Dermatology at [address] [place] [phone] Momo Morales MD [address] [facility], [place] [address] History of malignant melanoma; Hemangioma; Nevus; Eczema, unspecified type Social History Tobacco Use Types Packs/Day Years Used Date Smoking Tobacco: Every Day Sex and Gender Information Value Date Recorded Sex Assigned at Not on file Gender Identity Not on file Sexual Orientation Not on file documented as of this encounter Progress Notes * Momo Morales MD - 08/17/2016 2:45 PM EST PROBLEMS: 1. Yearly skin checkup. 2. History of malignant melanoma, left hip, 02/2011, 0.74 mm Breslow depth. Makayla follows up and has been doing well. She is here for yearly skin checkup. PHYSICAL EXAMINATION: Reveals a pleasant, now 71-year-old woman who has a well-healed melanoma excision site on the left lateral hip. There is no recurrent pigmentation. Physical examination of the face, the chest, the back, the hands, arms, forearms, thighs, and the calves is benign. She has a number of xie-red hemangiomas, seborrheic keratoses, and benign nevi on examination of the head and the neck, the chest, the back, the hands, arms, forearms, thighs, and the calves. She has a nevus on the sole of the left foot. ASSESSMENT/PLAN: 1. History of malignant melanoma. a. No evidence of recurrence. b. Patient reassured. c. Return to clinic in a year for recheck. 2. History of neurodermatitis. a. Patient is working very hard not to dig and scratch at herself and she is doing a pretty good job. b. Use CeraVe cream, good emollients to help control this. She has an old tube of triamcinolone cream that she can use from time to time as well. 3. Benign nevi/benign skin examination. a. Patient reassured about benign nevi. b. No treatment neck. Return to clinic in one year. CC: Gisela Diaz MD documented in this encounter Plan of Treatment Upcoming Encounters Date Type Department Care Team (Late st Contact Info) Description 05/09/2025 10:30 AM EDT Office Visit Dermatology at [place] [address] [place] [phone] Momo Morales MD [address] [facility], [place] [address] documented as of this encounter Visit Diagnoses Diagnosis History of malignant melanoma Personal history of malignant melanoma of skin Hemangioma Nevus Benign neoplasm of skin, site unspecified Eczema, unspecified type documented in this encounter Care Teams Drophammer Operator Relationship Specialty Start Date End Date Gisela Diaz MD [facility] [address] [facility] [address] [place] [address] PCP - General 07/14/10 documented as of this encounter
--- OUTSIDE RECORDS SUMMARY | 2024-07-16 18:36 | XMS_ITS | Encounter Summary ---
[place] [address] Care Team Providers Care Service Center Technician Name Role Phone Gisela Diaz MD Primary Care Provider [phone] Reason for Visit * Reason Comments Suture / Staple Removal Encounter Details Date Type Department Care Team (Late Contact Info) Description 01/04/2019 9:30 AM EDT Office Visit Dermatology at [address] [place] [address] Momo Morales MD [address] [facility], [place] [address] History of malignant melanoma; Nevus; Eczema, unspecified type Social History Tobacco Use Types Packs/Day Years Used Date Smoking Tobacco: Every Day Smokeless Tobacco: Never Sex and Gender Information Value Date Recorded Sex Assigned at Not on file Gender Identity Not on file Sexual Orientation Not on file documented as of this encounter Progress Notes * Momo Morales MD - 01/04/2019 9:30 AM EDT Problem: Follow-up for suture removal of torn earlobe repair Makayla follows up and had an uneventful postoperative course. Physical examination reveals excellent healing of the repair site on her right earlobe Status post right earlobe tear repair 1. Sutures removed 2. December DC wound instructions 3. Return to clinic in another year for repeat check CC: Gisela Diaz MD documented in this encounter Plan of Treatment Upcoming Encounters Date Type Department Care Team (Late st Contact Info) Description 05/09/2025 10:30 AM EDT Office Visit Dermatology at [place] [address] [place] [address] Momo Morales MD [address], [place] [address] documented as of this encounter Visit Diagnoses Diagnosis History of malignant melanoma Personal history of malignant melanoma of skin Nevus Benign neoplasm of skin, site unspecified Eczema, unspecified type documented in this encounter Care Teams Service Center Technician Relationship Specialty Start Date End Date Gisela Diaz MD [facility] [address] [facility] [address] [place] [address] PCP - General 07/14/10 documented as of this encounter
--- OUTSIDE RECORDS SUMMARY | 2024-07-16 18:36 | XMS_ITS | Encounter Summary ---
[place] [address] Care Team Providers Care Juvenile Probation Officer Name Role Phone Gisela Diaz MD Primary Care Provider [phone] Reason for Visit * Reason Comments Annual Exam Encounter Details Date Type Department Care Team (Late st Contact Info) Description 04/04/2023 10:45 AM EDT Office Visit Dermatology at [address] [phone] Momo Morales MD [address] [facility], [place] [address] Seborrheic dermatitis; History of malignant melanoma; Nevus [...] Progress Notes * Momo Morales MD - 04/04/2023 10:45 AM EDT Problem: 1. Yearly skin checkup 2. History of malignant melanoma, left hip, February 2011, 0.75 mm Breslow depth 3. History of excessive sun exposure in the past, lived for a time in [place] on [address] Makayla follows up today for her yearly skin checkup. She has been doing well and has not noted any new skin lesions of concern. She is looking forward to a week at the [facility] next week in [place].When she comes back she has to have a hernia surgery done. Physical examination reveals a pleasant 77-year-old woman who has a benign examination of [...] No evidence of recurrence 2. Patient reassured CC: Gisela Diaz MD documented in this encounter Plan of Treatment Upcoming Encounters Date Type Department Care Team (Late st Contact Info) Description 05/09/2025 10:30 AM EDT Office Visit Dermatology at [address] [place] [address] Momo Morales MD [address] [address], [place] [address] documented as of this encounter Visit Diagnoses Diagnosis Seborrheic dermatitis Seborrheic dermatitis, unspecified History of malignant melanoma Personal history of malignant melanoma of skin Nevus Benign neoplasm of skin, site unspecified documented in this encounter Care Teams Juvenile Probation Officer Relationship Specialty Start Date End Date Gisela Diaz MD [address] [place] [address] [facility] [address] [place] [address] PCP - General 07/14/10 documented as of this encounter
--- OUTSIDE RECORDS SUMMARY | 2024-07-16 18:36 | XMS_ITS | Encounter Summary ---
Author Organization [facility] Address [address] [place] [address] Care Team Providers Care Watch Dial Printer Name Role Phone Unknown, Provider Primary Care Provider Unava ilable Encounter Details Date Type Department Care Team (Late st Contact Info) Description 05/11/2013 Results Only [facility]- [facility] [phone] Fabián Wren, DO [address] [place] [address] Social History Tobacco Use Types [...] Date/Time Associated Diagnosis Comments SURGICAL PATHOLOGY Routine 05/11/2013 20 :50 EDT documented in this encounter Results * SURGICAL PATHOLOGY (05/11/2013 20:50 EDT) Pathology Report: SURGICAL PATHOLOGY REPORT Reports generated via electronic interface contain original data; however they are lacking the format of the original report. Caution should be taken when reading/interpreti ng unformatted reports. Name: ? YANETH MARTIN ? Accession #: ? [id number] ? : ? 1945 (Age: 68) ??F ? Collect Date: ? 05/11/2013 ? Location: ? [facility] ? Receive Date: ? 05/11/2013 ? Provider: FABIÁN WREN DO Copy to: LARON ROJAS MD ? Final Pathologic Diagnosis: A. COLON, SIGMOID, POLYP, BIOPSY: - ??Tubular adenoma. B. RECTUM, POLYP, BIOPSY: - ??Colonic mucosa with surface hyperplastic changes. See comment. C. RECTUM, POLYP, BIOPSY: - ??Fragments of hyperplastic polyp. Comment: Deeper sections of specimen B have been examined. Dr. Bush 05/14/2013 05:44 PM Document reviewed and electronically signed by: JUAN MANUEL VILLA MD Report ??Date: 05/15/2013 13:24 By the signature above, the attending physician certifies that he/she has personally conducted a gross and/or microscopic examination of the described specimens and rendered or confirmed the above diagnosis. Specimen(s) Received: A. ??Biopsies sigmoid colon (#1) B. ??Bx rectal polyp (#2) C. ??Bxs rectal polyp (#3) Clinical History: Colon cancer screening Gross Description: A. ?Received in formalin labelled with proper patient identification (initials F, M) and 1. biopsies sigmoid colon are three pink-harvey tissues (0.3 x 0.2 x 0.2 cm to 0.4 x 0.4 x 0.2 cm). Entirely submitted in A1. B. ?Received in formalin labelled with proper patient identification (initials F, M) and 2. bx rectal polyp are three pink-harvey tissues (0.1 x 0.1 x 0.1 cm to 0.3 x 0.2 x 0.2 cm). Entirely submitted in B1. C. ?Received in formalin labelled with proper patient identification (initials F, M) and 3. bxs rectal polyp are six pink-harvey tissues (0.1 x 0.1 x 0.1 cm to 0.3 x 0.2 x 0.1 cm). Entirely submitted in C1 and C2. Dr. Tomas 05/12/2013 09:58 AM End of Report [facility] 05/11/2013 20:5 0 EDT 05/11/2013 20:50 EDT us Fabián Wren DO PATHOLOGY ORDERABLES Final Res ult [facility] [address] [place] [address] documented in this encounter Visit Diagnoses Not on filedocumented in this encounter Care Teams Watch Dial Printer Relationship Specialty Start Date End Date Unknown, Provider, PCP - General 09/24/11 05/13/13 documented as of this encounter
--- OUTSIDE RECORDS SUMMARY | 2024-07-16 18:36 | XMS_ITS | Encounter Summary ---
Author Organization [facility] Address [address] [place] [address] Care Team Providers Care Locker Plant Attendant Name Role Phone Unknown, Provider Primary Care Provider Unava ilable Encounter Details Date Type Department Care Team (Late st Contact Info) Description 03/01/2013 Results Only [facility] - [facility] ([facility]) [address] [place], [place] [phone] Gisela Rojas MD [address] [facility] [address] [place] [address] Social History Tobacco Use Types [...] Diagnosis Comments PAP TEST- RESULT ONLY Routine 03/01/2013 0:00 EDT documented in this encounter Results * PAP TEST- RESULT ONLY (03/01/2013 0:00 EDT) Pathology Report: CYTOPATHOLOGY REPORT Reports generated via electronic interface contain original data; however they are lacking the format of the original report. Caution should be taken when reading/interpreti ng unformatted reports. Name: ? YANETH MARTIN ? Accession #: ? [id number] : ? 1945 (Age: 68) ??F ?Collect Date: ? 03/01/2013 Location: ? [facility] ? Receive Date: ? 03/05/2013 Provider: ?GISELA ROJAS MD Copy to: ? Specimen/Source: ?Pap Test, Cervix, ThinPrep Imaging System with manual evaluation Last Menstrual Period: ? 2001 ? SPECIMEN ADEQUACY ? Satisfactory for Evaluation - transformation zone component present GENERAL CATEGORIZATION ? Negative for Intraepithelial Lesion or Malignancy ? Document reviewed and electronically signed by: ? JASSI [place](ASCP) ? Report Date: ??03/07/2013 16:13 End of Report [facility] 03/01/2013 03/05/2013 us Gisela Rojas MD PATHOLOGY ORDERABLES Final Resul t [facility] [address] [place] [address] documented in this encounter Visit Diagnoses Not on filedocumented in this encounter Care Teams Locker Plant Attendant Relationship Specialty Start Date End Date Unknown, Provider, PCP - General 09/24/11 05/13/13 documented as of this encounter
--- OUTSIDE RECORDS SUMMARY | 2024-07-16 18:36 | XMS_ITS | Encounter Summary ---
[place] [address] Care Team Providers Care Feeder Operator Name Role Phone Gisela Diaz MD Primary Care Provider [phone] Reason for Visit * Reason Comments Annual Exam Encounter Details Date Type Department Care Team (Late st Contact Info) Description 04/02/2022 10:45 AM EDT Office Visit Dermatology at [address] [address] Momo Morales MD [address] [facility], [place] [address] Nevus; Seborrheic dermatitis; History of malignant melanoma Social History Tobacco [...] Progress Notes * Momo Morales MD - 04/02/2022 10:45 AM EDT Problem: 1. ??Yearly skin checkup 2. ??History of malignant melanoma, left hip, February 2011, 0.75 mm Breslow depth 3. ??History of excessive sun exposure in the past, lived for a time in [place] ?? Makayla follows up today for her yearly skin checkup. She has been doing well and has not noted any new skin lesions of concern. Unfortunately she lost her sister this last year and she been looking laura apartment, but meantime living with her brother. Physical examination reveals a pleasant 77-year-old woman who has a benign examination of the face and neck the chest the back the hands arms forearms thighs and calves. She has a well-healed scar without any evidence of recurrent pigmentation at the left hip melanoma excision site. Assessment plan: Benign skin examination 1. Patient reassured by today's benign skin examination 2. Continue sun [...] 10:30 AM EDT Office Visit Dermatology at [address] [place] [address] Momo Morales MD [address] [facility] [facility] [address] [address], [place] [address] documented as of this encounter Visit Diagnoses Diagnosis Nevus Benign neoplasm of skin, site unspecified Seborrheic dermatitis Seborrheic dermatitis, unspecified History of malignant melanoma Personal history of malignant melanoma of skin documented in this encounter Care Teams Feeder Operator Relationship Specialty Start Date End Date Gisela Diaz MD [address] [place] [address] [address] [place] [address] PCP - General 07/14/10 documented as of this encounter
--- OUTSIDE RECORDS SUMMARY | 2024-07-16 18:36 | XMS_ITS | Encounter Summary ---
[place] [address] Care Team Providers Care Bill Clerk Name Role Phone Gisela Diaz MD Primary Care Provider [phone] Encounter Details Date Type Department Care Team (Latest Contact Info) Description 05/07/2024 Travel Social History Tobacco Use Types Packs/Day [...] 10:30 AM EDT Office Visit Dermatology at [place] [address] [facility] [phone] Momo Morales MD [address] [facility], [place] [address] documented as of this encounter Visit Diagnoses Not on filedocumented in this encounter Care Teams Bill Clerk Relationship Specialty Start Date End Date Gisela Diaz MD [facility] [address] [place] [address] PCP - General 07/14/10 documented as of this encounter
--- OUTSIDE RECORDS SUMMARY | 2024-07-16 18:36 | XMS_ITS | Encounter Summary ---
[place] [address] Care Team Providers Care Campaign Manager Name Role Phone Gisela Diaz MD Primary Care Provider [phone] Reason for Visit * Reason Comments Follow-up Encounter Details Date Type Department Care Team (Late st Contact Info) Description 12/28/2018 9:15 AM EDT Procedure visit Dermatology at [address] [place] [address] Momo Morales MD 580 [facility], [place] [address] History of malignant melanoma; Nevus; Eczema, unspecified type Social History Tobacco Use Types Packs/Day Years Used Date Smoking Tobacco: Every Day Smokeless Tobacco: Never Sex and Gender Information Value Date Recorded Sex Assigned at Not on file Gender Identity Not on file Sexual Orientation Not on file documented as of this encounter Progress Notes * Momo Morales MD - 12/28/2018 9:15 AM EDT Problem: Torn right earlobe Makayla follows today for repair of her torn right earlobe. Physical examination again reveals a pierced ear where there is been a known through and through enlargement of the piercing site in a linear fashion inferiorly Assessment plan: Torn right earlobe 1. Today site was anesthetized and excised out and then sewn together 2. Wound contract supplies given 3. Suture removal in 7 days 4. Recommended that if she does choose to have this area re-pierced again, she must not do this within the scar line. CC: Gisela Diaz MD documented in this encounter Plan of Treatment Upcoming Encounters Date Type Department Care Team (Late st Contact Info) Description 05/09/2025 10:30 AM EDT Office Visit Dermatology at [place] [address] [facility] [place] [address] Momo Morales MD [address] [facility] [address] [address], [place] [address] documented as of this encounter Visit Diagnoses Diagnosis History of malignant melanoma Personal history of malignant melanoma of skin Nevus Benign neoplasm of skin, site unspecified Eczema, unspecified type documented in this encounter Care Teams Campaign Manager Relationship Specialty Start Date End Date Gisela Diaz MD [address] [place] [address] [facility] 1 [place] [address] PCP - General 07/14/10 documented as of this encounter
--- OUTSIDE RECORDS SUMMARY | 2024-07-16 18:36 | XMS_ITS | Clinical Summary ---
Author Organization [facility] Address [address] [place] [address] Care Team Providers Care Masonry Installer Name Role Phone Gisela Diaz MD Primary Care Provider [phone] Social History Tobacco Use Types Packs/Day Years Used Date Smoking Tobacco: Never Assessed Interpersonal Safety Answer Date Record ed Physically Hurt Never 03/23/2020 Verbally Threaten Not on file 03/23/2020 Comments Unknown Sex and Gender Information Value Date Recorded Sex Assigned at Not on file Legal Sex Female 18:55 EST Gender Identity Not on file Sexual Orientation Not on file Plan of Treatment Health Maintenance Due Date Last Done Comments Hepatitis C Screen 1945 Fall Risk Screening 01/07/2012 RSV Immunization ( o r 60+ Years) (1 - 1-dose 75+ series) 2022 COVID-19 Vaccine ( season) 2024 Care Teams Masonry Installer Relationship Specialty Start Date End Date Gisela Diaz MD [address] [place] [address] [address] [place] [phone] PCP - General 05/14/13
--- OUTSIDE RECORDS SUMMARY | 2024-07-16 18:36 | XMS_ITS | Encounter Summary ---
[place] [address] Care Team Providers Care Ux Lead Name Role Phone Gisela Diaz MD Primary Care Provider Reason for Visit * Reason Comments Follow-up Skin Check Encounter Details Date Type Department Care Team (Late st Contact Info) Description 10/17/2017 9:30 AM EST Office Visit Dermatology at [address] [place] [address] Momo Morales MD [address] [facility], [place] [address] History of malignant melanoma; Hemangioma; Nevus; Eczema, unspecified type Social History Tobacco Use Types Packs/Day Years Used Date Smoking Tobacco: Every Day Smokeless Tobacco: Never Sex and Gender Information Value Date Recorded Sex Assigned at Not on file Gender Identity Not on file Sexual Orientation Not on file documented as of this encounter Progress Notes * Momo Morales MD - 10/17/2017 9:30 AM EST Problem: 1. Yearly skin checkup 2. History of malignant melanoma, left hip, February 2011, 0.74 mm Breslow depth 3. History of excessive sun exposure in the past, lived for a time in [place]. Makayla follows up is been doing well. She is here for yearly skin checkup. She is using different emollients to keep her skin itching under control. She has no new lesions of concern. Physical examination reveals a pleasant 72-year-old woman who has cutis murmur onto of the lower extremities. She has fortunately no evidence of recurrent pigmentation of the left hip melanoma excision site. Examination of the head and the neck the chest the back the hands arms forearms thighs and the calves is benign. She has 2 seborrheic keratoses on her legs one on the right calf and one on the left anterior thigh. Assessment and plan: History of malignant melanoma 1. No evidence recurrence 2. Patient reassured 3. Recommend to clinic in another year for repeat check. History of neurodermatitis 1. Patient is working very hard to digging scratch herself and doing a good job using CeraVe cream and an emollient lotion that her daughter sells. 2. Continue to emollient skin and avoid scratching. Cc: Gisela Diaz MD documented in this encounter Plan of Treatment Upcoming Encounters Date Type Department Care Team (Late st Contact Info) Description 05/09/2025 10:30 AM EDT Office Visit Dermatology at [address] [place] [address] Momo Morales MD [address] [facility], [place] [address] documented as of this encounter Visit Diagnoses Diagnosis History of malignant melanoma Personal history of malignant melanoma of skin Hemangioma Nevus Benign neoplasm of skin, site unspecified Eczema, unspecified type documented in this encounter Care Teams Ux Lead Relationship Specialty Start Date End Date Gisela Diaz MD [address] [place] [address] [address] [place] [address] PCP - General 07/14/10 documented as of this encounter
--- OUTSIDE RECORDS SUMMARY | 2024-07-16 18:36 | XMS_ITS | Referral Summary ---
Author Organization [facility] Address [address] [place] [address] Care Team Providers Care Button Riveter Name Role Phone Gisela Diaz MD Primary Care Provider [phone] Social History Tobacco Use Types Packs/Day Years Used Date Smoking Tobacco: Never Assessed Interpersonal Safety Answer Date Record ed Physically Hurt Never 03/23/2020 Verbally Threaten Not on file 03/23/2020 Comments Unknown Sex and Gender Information Value Date Recorded Sex Assigned at Not on file Legal Sex Female 18:55 EST Gender Identity Not on file Sexual Orientation Not on file Plan of Treatment Not on file Care Teams Button Riveter Relationship Specialty Start Date End Date Gisela Diaz MD [address] [place] [address] [address] [place] [phone] PCP - General 05/14/13
--- OUTSIDE RECORDS SUMMARY | 2024-07-16 18:36 | XMS_ITS | Clinical Summary ---
Author Organization [facility] Address [facility] [place] [address] Care Team Providers Care Waterproofer Name Role Phone Gisela Diaz MD Primary Care Provider [phone] Allergies No known active allergies Medications Medication Sig Dispensed Refills Start Date End Date Status omeprazole (PRILOSEC) 20 mg capsule Take 20 mg by mouth daily. Active OXYBUTYNIN CHLORIDE (DITROPAN ORAL) Take 5 mg by mouth 3 times daily. Active triamcinolone (KENALOG) 0.1 % Cream Apply daily/BID/PRN to affected itchy areas. Dispense one pound jar 453.6 g 1 11/10/2018 Active Additional Information Patient taking differently: Apply daily/BID/PRN to affected itchy areas. Dispense one pound jar, Reported on 04/02/2022 acetaminophen (Tylenol) 500 mg Tablet Take 1,000 mg by mouth every 6 hours as needed for Pain. Active citalopram (CeleXA) 40 mg Tablet Take 40 mg by mouth daily. Active cholecalciferol, Vitamin D3, 50 mcg (2,000 unit) Capsule TAKE 1 CAPSULE BY MOUTH DAILY AFTER ERGOCALCIFEROL TREATMENT 01/04/2022 Active atorvastatin (Lipitor) 20 mg tablet Take 20 mg by mouth nightly. Active Active Problems Problem Noted Date Diagnosed Date Osteopenia 12/19/2020 Hair loss 12/19/2020 ETOH abuse 12/19/2020 Cigarette smoker 12/19/2020 Mixed stress and urge urinary incontinence 12/19 Gastroesophageal reflux 12/19/2020 Anxiety 12/19/2020 Skin lesion 12/19/2020 Overview (12/19/2020): Left calf non-healing Hemangioma 08/17/2016 Nevus 08/17/2016 Eczema 08/17/2016 Acne vulgaris 08/09/2014 Resolved Problems Problem Noted Date Diagnosed Date Resolved Date History of malignant melanoma 05/22/2013 12/19/2020 Encounters Date Type Department Care Team Description 05/07/2024 3:30 PM EDT Office Visit Dermatology at [address] [phone] Momo Morales MD Seborrheic dermatitis; History of malignant melanoma; Nevus 05/07/2024 Travel from Last 3 Months Immunizations Name Administration Dates Next Due Influenza Vaccine, Whole 08/02/2007 Social History Tobacco Use Types Packs/Day Years Used Date Smoking Tobacco: Every Day Smokeless Tobacco: Never Alcohol Use Standard Drinks/Week Comments Yes 0 (1 standard drink = 0.6 oz pur e alcohol) Sex and Gender Information Value Date Recorded Sex Assigned at Not on file Gender Identity Not on file Sexual Orientation Not on file Plan of Treatment Upcoming Encounters Date Type Department Care Team (Late st Contact Info) Description 05/09/2025 10:30 AM EDT Office Visit Dermatology at [address] [phone] Momo Morales MD 580 [facility], [place] [address] Health Maintenance Due Date Last Done Comments Pneumoccocal Vaccine: 65+ (1 of 2 - PCV) 1951 Hepatitis C Screening 1963 Tetanus/Diphtheria/Pertussis Vaccines (1 - Tdap) 01/06 Zoster vaccine (1 of 2) 1997 Advance Directive 2002 Bone Density Scan 01/07/2012 RSV Vaccine (1 - 1-dose 75+ series) 2022 Covid-19 Vaccine (1 - season) 2024 Influenza (Flu) vaccine (1 o f 1 - Influenza standard series) 04/22/2024 08/02/2007 Care Teams Waterproofer Relationship Specialty Start Date End Date Gisela Diaz MD [facility] [address] [place], [place] [phone] PCP - General 07/14/10
--- OUTSIDE RECORDS SUMMARY | 2024-07-16 18:36 | XMS_ITS | Encounter Summary ---
[place] [address] Care Team Providers Care Utilization Engineer Name Role Phone Gisela Diaz MD Primary Care Provider [phone] Encounter Details Date Type Department Care Team (Late Contact Info) Description 04/06/2007 Orders Only Dermatology at [address] [phone] Momo Morales MD [address] [place] [address], [facility] [place] [address] Social History Tobacco Use Types Packs/Day Years [...] AM EDT Office Visit Dermatology at [address] [address] Momo Morales MD [address] [place] [address], [facility] [place] [place] [address] documented as of this encounter Procedures Procedure Name Priority Date/Time Associated Diagnosis Comments SURGICAL PATHOLOGY REPORT Routine 04/06/2007 5:39 PM EDT documented in this encounter Results * Surgical Pathology Report (04/06/2007 5:39 PM EDT) Surgical Pathology Report [id number] ? Location: The signing pathologist has (i) examined the relevant preparation(s) for the specimen(s) and (ii) rendered or confirmed the diagnosis(es). . ?Pathology Surgical Pathology Final Report Clinical Information Specimen Submitted: A - (L) hip; excision Clinical History: Bx proven MM, #[id number] for re-excision. Clinical Diagnosis: MM Report to: Momo Morales MD, III [facility] [place], [place] ??[address] Gross Description Labeled/Fixativ e: ? Labeled with the patient's name, formalin. Qty/Size/Weight : ?Single, 4.0 x 1.5 x 0.8 cm. Tissue Description: ?? Ellipse of harvey-white skin with a central, ?2.0 x 0.5-cm, elliptical, wrinkled, jacques-white scar. Sections/Proces sing: ??The specimen is inked and serially sectioned. ??The ?ends are submitted in (1); the remainder of the ?specimen submitted in (2-7). ?? (T7) ??aje/EJR Microscopic Description Slides reviewed, microscopic description not recorded. Diagnosis Skin of left hip, excision: ??Scar and inflammation. ??No residual melanoma identified. CR-0 04/12/07 AEP 04/12/07 Verified by: ? Silvia Forman MD ?Dermatopathol ogist ?(Electronic Signature) The attending pathologist whose signature appears on this report has reviewed all diagnostic slides and has edited the gross and/or microscopic portion of the report in rendering the final pathologic diagnosis. [facility] 04/06/2007 5:39 PM EDT Momo Morales MD PATHOLOGY/CYTOLOGY O [facility] documented in this encounter Visit Diagnoses Not on filedocumented in this encounter Care Teams Utilization Engineer Relationship Specialty Start Date End Date Gisela Diaz MD [facility] [address] [place] [address] PCP - General 07/14/10 documented as of this encounter
--- OUTSIDE RECORDS SUMMARY | 2024-07-16 18:36 | XMS_ITS | Encounter Summary ---
Author Organization [facility] Address [address] [place] [address] Care Team Providers Care Detail Technician Name Role Phone Gisela Diaz MD Primary Care Provider [phone] Encounter Details Date Type Department Care Team (Late st Contact Info) Description 03/27/2020 Lab Requisition [facility] Pathology & Laboratory Medicine - [address] [phone] Outr Resulting Lab, Provider Social History Tobacco Use Types Packs/Day Years [...] Procedure Name Priority Date/Time Associated Diagnosis Comments PTH INTACT Routine 03/27/2020 10:47 EDT documented in this encounter Results * PTH INTACT (03/27/2020 10:47 EDT) Intact PTH 50 19 - 88 pg/mL 03/28/2020 9:08 EDT [facility] Blood VENOUS BLOOD / Unknown 03/27/2020 10:47 EDT 03/27/2020 20:32 EDT us Provider Outr Resulting Lab CHEMISTRY & BLOOD GA S ORDERABLES Final Result [facility] [address] [place] [address] documented in this encounter Visit Diagnoses Not on filedocumented in this encounter Care Teams Detail Technician Relationship Specialty Start Date End Date Gisela Diaz MD [address] [place] [phone] PCP - General 05/14/13 documented as of this encounter
--- OUTSIDE RECORDS SUMMARY | 2024-07-16 18:36 | XMS_ITS | Encounter Summary ---
Author [place] [address] Care Team Providers Care Environmental Science Instructor Name Role Phone Gisela Diaz MD Primary Care Provider [phone] Reason for Visit * Reason Onset Date Comments Medication Refill 12/22/2020 Encounter Details Date Type Department Care Team (Late Contact Info) Description 12/22/2020 Refill Dermatology at [address] [phone] Momo Morales MD [address] [place] [phone] Eczema, unspecified type Social History Tobacco Use [...] 10:30 AM EDT Office Visit Dermatology at [address] [address] Momo Morales MD [address] [place] [address] documented as of this encounter Visit Diagnoses Diagnosis Eczema, unspecified type documented in this encounter Care Teams Environmental Science Instructor Relationship Specialty Start Date End Date Gisela Diaz MD [address] [place] [address] PCP - General 07/14/10 documented as of this encounter
--- OUTSIDE RECORDS SUMMARY | 2024-07-16 18:36 | XMS_ITS | Encounter Summary ---
Author Organization [facility] Address [address] [place] [address] Care Team Providers Care Supervisor Fabrication Department Name Role Phone Gisela Rojas MD Primary Care Provider [phone] Encounter Details Date Type Department Care Team (Late st Contact Info) Description 08/21/2013 Results Only [facility] Laboratory Services - [facility] [place] [place] [address] [place] [address] Betty Montelongo MD [address] [place] [address] [place] [address] Social History Tobacco Use Types Packs/Day Years [...] Date/Time Associated Diagnosis Comments SURGICAL PATHOLOGY Routine 08/21/2013 22 :13 EST documented in this encounter Results * SURGICAL PATHOLOGY (08/21/2013 22:13 EST) Pathology Report: SURGICAL PATHOLOGY REPORT Reports generated via electronic interface contain original data; however they are lacking the format of the original report. Caution should be taken when reading/interpreti ng unformatted reports. Name: ? YANETH MARTIN ? Accession #: ? [id number] ? : ? 1945 (Age: 68) ??F ? Collect Date: ? 08/21/2013 ? Location: ? [facility] ? Receive Date: ? 08/21/2013 ? Provider: BETTY MONTELONGO MD Copy to: GISELA ROJAS MD ? Final Pathologic Diagnosis: ENDOMETRIUM, BIOPSY: - ??Scant superficial strips of inactive endometrium with tubal metaplasia. - ??Scant fragments of benign endocervical and ectocervical mucosa. Document reviewed and electronically signed by: WALLY GRANT MD Report ??Date: 08/24/2013 10:45 By the signature above, the attending physician certifies that he/she has personally conducted a gross and/or microscopic examination of the described specimens and rendered or confirmed the above diagnosis. Specimen(s) Received: Endometrial bx Clinical History: Postmenopausal spotting; LMP: 2000 Gross Description: ? Received in formalin labelled with proper patient identification (initials F, M) and endometrial bx is an aggregate of harvey tissue and mucus (0.7 x 0.7 x 0.2 cm). Submitted in toto in cassette 1. Kira Salvador 08/23/2013 08:24 AM End of Report [facility] 08/21/2013 22:1 3 EST 08/21/2013 22:13 EST us Betty Montelongo MD PATHOLOGY ORDERABLES Final Resu lt [facility] [address] [place] [address] documented in this encounter Visit Diagnoses Not on filedocumented in this encounter Care Teams Supervisor Fabrication Department Relationship Specialty Start Date End Date Gisela Rojas MD [address] [place] [phone] PCP - General 05/14/13 documented as of this encounter
[2024-07-16 19:14] LABS: HCT 39.6 % (36.0-46.0); MCH 31.5 pg (27.0-33.0); MCHC 32.8 % (32.0-36.0); MCV 96 fL (80-95); MPV 10.1 fL (8.0-11.0); Platelet Count 196 10^3/uL (130-400); RBC 4.13 10^6/uL (3.93-5.22); RDW 12.2 % (11.7-14.6); RDW-SD 43.6 fL
[2024-07-16 19:57] LABS: Folate 18.2 ng/mL (8.6-20.0); TSH (W/Ref FT4) 0.98 uIU/mL (0.36-3.74); Vitamin B12 326 pg/mL (193-986)
== END 2024-07-16 18:34 | disposition home or self-care (01) ==
LOC: NCHCN 18:33
PROVIDERS: PCP Family Medicine; Visit Provider Family Medicine
DX: F10.10 Alcohol abuse, uncomplicated (principal); R63.4 Abnormal weight loss
CPT/HCPCS: 85027; 82607; 82746; 84443

== ENCOUNTER 2024-08-30 02:49 | Outpatient (CLI) | payer MEDICARE, SELFPAY ==
--- NOTE | 2024-08-30 | DI.MAMMO_ITS ---
Exam(s) MAMMO SCREENING EXAM: MAMMO SCREENING CLINICAL HISTORY: Screening, Z12.31 TECHNIQUE: Bilateral full field digital CC and MLO mammographic images were obtained with 3D tomosyn thesis and utilizing computer aided detection (CAD). COMPARISON: Available for comparison. FINDINGS: Masses/Architectural Distortion: None seen. Microcalcifications: No suspicious pleomorphic-type are seen. Skin Thickening/Nipple Retraction: None. IMPRESSION: 1. No significant interval change with no specific features of malignancy noted. 2. Unless there is more urgent need, screening mammography is recommended, as per [place] [employer] guidelines. BI-RADS Category 1 - Negative Breast Density - Category B - Scattered areas of fibroglandular density Breast density category C or D implies that the patient has dense breast tissue. Dense breast tissue is very common and is not abnormal but dense breast tissue can make it harder to find cancer on a ma mmogram. Also, dense breast tissue may increase their breast cancer risk. This information about the result of the mammogram report was provided to the patient to raise their awareness. Use this report when you speak with the patient about their risks for breast cancer, which includes their family hist ory. At that time, you may recommend for more screening tests (Ultrasound or MRI) as they might be us eful based on their risk. A negative radiographic report should not delay biopsy if a dominant or clinically suspicious mass is present. Up to ten percent of cancers are not identified on mammography. A negative report may reinforce clinical impression. Adenosis and dense breasts may obscure an underlying neoplasm. False positive reports average 6 to 10%. Patient will receive a letter notifying them of these results.
--- NOTE | 2024-08-30 | DI.DEXA_ITS ---
Exam(s) XR DEXA BONE DENSITY W/WO LORRIE EXAM: XR DEXA BONE DENSITY W/WO LORRIE CLINICAL HISTORY: Osteopenia, M85.88-other specified disorders of bone density and structure, TECHNIQUE: Routine DEXA evaluation of the lumbar spine, hip, or forearm. COMPARISON: CR XR DEXA BONE DENSITY W/WO LORRIE from 01/04/2020 FINDINGS: Performed on a Hologic unit. Lateral image: There is mild height loss of superior endplate of L 3 and L4, not acute appearing Lumbar Spine total T-score: -0.9. Prior reading in December 2019 was -0.7. Still remains within normal l imits. Hip total T-score:-1.7. Prior reading in December 2019 was -1.5. Presently in osteopenia range. Independent reading at the level of the femoral neck yields T-score of -1.5 Forearm total T-score: Not performed. Apparently this patient as a left wrist fracture and is right- handed. IMPRESSION: Bone mineral density measures in the osteopenia range for the hip. Fracture risk is moderate. Bone density is within normal range for the lumbar spine. Nevertheless, I note that there is chronic appe aring slight loss of height of superior endplates of L3 and L4 vertebral bodies. Note: Any spine fracture indicates 5x risk for subsequent spine fracture and 2x risk for subsequent h ip fracture. World Health Organization criteria for BMD interpretation classify patients: Normal...... T- Score at or above -1.0 Osteopenic... T- Score between -1.0 and -2.5 Osteoporosis... T-Score at or below -2.5
== END 2024-08-30 03:09 ==
PROVIDERS: PCP Family Medicine; Visit Provider Family Medicine
DX: M85.88 Other specified disorders of bone density and structure, other site (principal); Z12.31 Encounter for screening mammogram for malignant neoplasm of breast
CPT/HCPCS: 77063; 77067; 77080

== ENCOUNTER 2025-03-06 13:04 | Emergency (ER) | payer MEDICARE, SELFPAY ==
--- NOTE | 2025-03-06 13:00 | RT.EKG_ITS ---
APPROVED REPORT Exam: Resting ECG Reason for Exam: syncope Patient Location: E HR:62 bpm ECG Measurements Heart Rate 62 AXIS CA 237 P 77 QRSd 71 QRS 96 QT 426 T 71 QTc 434 Conclusion Sinus rhythm...normal P axis, V-rate 60- 99 Prolonged CA interval...CA >220, V-rate 50- 90 Right axis deviation...QRS axis ( 91,269) Probable anterolateral infarct, old...Q>35mS, abnrm ST-T, V2-V6,I,aVL
[2025-03-06 13:08] VITALS: BP 130/77; PULSE 68; RESP 20; TEMP 37.3; O2SAT 96
[2025-03-06 13:15] VITALS: BP 130/77; PULSE 68; RESP 20; TEMP 37.3; O2SAT 96
--- NOTE | 2025-03-06 14:00 | DI.MRI_ITS ---
Exam(s) MR BRAIN WO/W EXAM: MR BRAIN WO/W CLINICAL HISTORY: falling to right 6 days, headache, confusion TECHNIQUE: Multiplanar multisequence MRI of the brain was performed. Both noninfused and contrast infused sequences were performed. IV Contrast injected was 10 cc Dotarem. COMPARISON: No prior brain imaging exams were available for comparison FINDINGS: CEREBRAL PARENCHYMA: No evidence of intracranial hemorrhage, mass effect nor shift of midline structure. No evidence of cerebellar tonsillar ectopia. No extraaxial fluid collections. Ventricles are not enlarged nor shifted. There is no significant focal signal abnormality in the cerebellar hemispheres nor within the luiz, midbrain, and thalami. Are few small sub cm foci of periventricular white matter signal abnormality not associated with hemorrhage, surrounding edema, enhancement nor restricted diffusion. There are no ring enhancing intra-axial lesions in the brain. However, posteriorly on the right side there is a small 6 x 5 mm exophytic enhancing lesion off the posterior aspect of the sagittal sinus-probably represents a small meningioma. There is no surrounding brain edema. PITUITARY GLAND: No mass nor parasellar abnormality. No obvious abnormality in the cavernous sinuses. FLOW VOIDS: The expected flow void are noted. No evidence of obvious aneurysm nor obvious vascular malformation. PARANASAL SINUSES: The visualized paranasal sinuses appear unremarkable. ORBITS: No obvious abnormal findings. IMPRESSION: 1. There few small foci of periventricular signal abnormality consistent with chronic small vessel disease. 2. Small enhancing meningeal based 6 x 5 mm lesion posteriorly right paracentral which is probably a small meningioma. 3. There are no ring enhancing intra-axial lesions in the brain. Report called by myself to physician 03/06/2025 at 4 p.m. DATA REPOSITORY:
[2025-03-06 14:40] LABS: Abs Immature Grans 0.02 10^3/uL (0.0-0.06); HCT 38.0 % (36.0-46.0); HGB 12.7 g/dL (11.2-15.7); Immature Grans % 0.3 %; MCH 31.7 pg (27.0-33.0); MCHC 33.4 % (32.0-36.0); MCV 95 fL (80-95); MPV 9.6 fL (8.0-11.0); Platelet Count 218 10^3/uL (130-400); RBC 4.01 10^6/uL (3.93-5.22); RDW 11.8 % (11.7-14.6); RDW-SD 40.6 fL; WBC 7.89 10^3/uL (4.4-10.8)
[2025-03-06 14:57] LABS: ALT 29 U/L (14-59); AST 21 U/L (15-37); Albumin 3.7 g/dL (3.4-5.0); Alkaline Phosphatase 83 U/L (46-116); Anion Gap 9.8 mmol/L (3-11); BUN 13 mg/dL (7-18); Bilirubin, Total 0.4 mg/dL (0.2-1.0); CO2 28.2 mmol/L (21.0-32.0); Calcium 9.6 mg/dL (8.5-10.1); Chloride 105 mmol/L (98-107); Estimated GFR 95.94 (mL/min/1.73m2); Glucose 89 mg/dL (74-106); Magnesium 1.5 mg/dL (1.8-2.4); Potassium 3.7 mmol/L (3.5-5.1); Sodium 143 mmol/L (136-145); Total Protein 7.2 g/dL (6.4-8.2); Troponin I 7 ng/L (<or=51)
[2025-03-06 15:30] VITALS: RESP 16
[2025-03-06] MEDS: Gadoterate meglumine 20 ML SYRINGE 10 ML IVP (15:32)
[2025-03-06] MEDS: Normal Saline Flush 10 ML SYR IVP (15:32)
--- NOTE | 2025-03-06 15:34 | W.ED.GENAD ---
Discharge Plan Disposition Patient Disposition: Home Condition: Stable Discharge Details Clinical Impression: Lightheadedness, Hypomagnesemia Primary Care Provider: Gisela Diaz ED Provider: Kyler Smalls Home Meds and New Rx's Prescriptions: New thiamine HCl (vitamin B1) 100 mg tablet 100 mg PO DAILY Qty: 30 1RF Continued acetaminophen [Tylenol Extra Strength] 500 mg tablet 1,000 mg PO Q6H PRN aspirin 325 mg tablet 325 mg PO DAILY citalopram 10 MG tablet 40 mg PO DAILY oxybutynin chloride [Ditropan XL] 5 MG tablet extended release 24hr 10 mg PO TID omeprazole 20 MG capsule,delayed release(DR/EC) 20 mg PO DAILY cyanocobalamin (vitamin B-12) [Vitamin B-12] 1,000 mcg tablet extended release 1,000 mcg PO DAILY atorvastatin 20 mg tablet 20 mg PO HS Patient Comments: Take 1 tablet by mouth every evening cholecalciferol (vitamin D3) 50 mcg (2,000 unit) capsule 2,000 mcg PO DAILY Patient Comments: TAKE ONE CAPSULE BY MOUTH DAILY nicotine 21 mg/24 hr patch 24 hour 1 patch transdermal DAILY Qty: 7 0RF Discharge Instructions Instructions: Low Magnesium Level, Dizziness, Adult ED, Preventing Falls ED Additional Instructions: Please follow-up with your primary care physician. Please follow-up with neurology. Call to schedule an appointment[place] [facility] [place] Please take thiamine as prescribed. Return to the emergency department immediately for any worsening or new concerning symptoms. Referrals: [place] [place], [place] Gisela Diaz MD [Primary Care Provider, Medicine] Discharge Data Discharge Date/Time-TO BE ENTERED AT DEPARTURE: 03/06/25 16:59 HPI General Mode of arrival: ambulatory. Date/Time Provider Initiated Documentation: 03/06/25 13:41. Limitations to Documentation: no limitations. Information obtained by: patient. HPI Narrative: 80-year-old female with remote history of melanoma, chronic smoker, here with chief complaint of unsteady gait. Patient notes she feels as though her body is listing to the right over the past 6 days. She has noticed associated lightheadedness. No syncope. She also notes some paresthesias proximal anterior lower legs bilaterally over the same period of time. Patient has intermittent headaches and does note right posterior neck discomfort at the base of her skull which she attributes to arthritis. Friend is here with the patient who notes some recent confusion over the past week. Patient does acknowledge consuming 3 drinks per night regularly and sometimes more on special occasions. Related Data Home Medications ?Medication ?Instructions ?Recorded ?Confirmed Ditropan XL 5 mg tablet,extended 10 mg PO TID 04/16/13 03/06/25 release (oxybutynin chloride) citalopram 10 mg tablet 40 mg PO DAILY 04/16/13 03/06/25 omeprazole 20 mg capsule,delayed 20 mg PO DAILY 04/16/13 03/06/25 release atorvastatin 20 mg tablet 20 mg PO HS 10/05/22 03/06/25 cholecalciferol (vitamin D3) 50 2,000 mcg PO DAILY 10/05/22 03/06/25 mcg (2,000 unit) capsule acetaminophen 500 mg tablet 1,000 mg PO Q6H PRN 03/15/23 03/06/25 (Tylenol Extra Strength) aspirin 325 mg tablet 325 mg PO DAILY 03/15/23 03/06/25 nicotine 21 mg/24 hr daily 1 patch transdermal DAILY #7 ea 04/13/23 03/06/25 transdermal patch cyanocobalamin (vitamin B-12) 1,000 mcg PO DAILY 03/06/25 03/06/25 1,000 mcg tablet,extended release (Vitamin B-12 ER) thiamine HCl (vitamin B1) 100 mg 100 mg PO DAILY #30 tabs 03/06/25 tablet Previous Rx's ?Medication ?Instructions ?Recorded nicotine 21 mg/24 hr daily 1 patch transdermal DAILY #7 ea 04/13/23 transdermal patch thiamine HCl (vitamin B1) 100 mg 100 mg PO DAILY #30 tabs 03/06/25 tablet Allergies Allergy/AdvReac Type Severity Reaction Status Date / Time No Known Allergies Allergy Verified 03/06/25 13:28 General Stated Complaint: GenMedical JOE: 3 Review of Systems All systems reviewed & are unremarkable except as noted in HPI and below Constitutional Constitutional: Denies fever(s) Exam Const General: cooperative and no acute distress HENMT Mouth: moist mucous membranes Eyes Conjunctivae: normal conjunctivae EOM: EOM intact bilaterally Neck Neck: trachea midline and supple Resp Auscultation: clear to auscultation bilaterally, no rales, no rhonchi and no wheezes Cardio Rate: regular rate and not tachycardic Rhythm: regular rhythm GI Palpation: soft, not firm, no guarding, no masses, not rigid and nontender Skin General skin exam: no rashes or lesions noted Neuro General: patient alert, patient awake, patient oriented x3 and tone normal Cranial Nerves: CN's II-XI intact bilaterally Cognition: normal cognition Speech: speech normal Gait: wide-based Motor: strength 5/5 throughout Sensory Exam: no sensory deficits noted Coordination: [id number] test normal and Romberg test normal Extrem General: no edema Psych Appearance: grossly normal Mental Status: mental status grossly normal Speech and Movement: speech and movement normal Course Vital Signs Vital signs: Vital Signs Temperature 37.3 C 03/06/25 13:08 Pulse 68 03/06/25 13:08 Respiratory Rate 20 03/06/25 13:08 Blood Pressure 130/77 03/06/25 13:08 Pulse Oximetry 96 03/06/25 13:08 Temperature 37.3 C 03/06/25 13:15 Temperature Source Oral 03/06/25 13:15 Pulse 68 03/06/25 13:15 Respiratory Rate 20 03/06/25 13:15 Blood Pressure 130/77 03/06/25 13:15 Blood Pressure Position Sitting 03/06/25 13:15 Pulse Oximetry 96 03/06/25 13:15 Oxygen Delivery Method Room Air 03/06/25 13:15 Oxygen Flow Rate 0 03/06/25 13:15 Pain Level 5 03/06/25 13:15 Lab/Test Results Lab/Test Results: Laboratory Tests Range/Units 03/06/25 14:23 WBC (4.4-10.8) 10^3/uL 7.89 RBC (3.93-5.22) 10^6/uL 4.01 Hgb (11.2-15.7) g/dL 12.7 Hct (36.0-46.0) % 38.0 MCV (80-95) fL 95 MCH (27.0-33.0) pg 31.7 MCHC (32.0-36.0) % 33.4 RDW (11.7-14.6) % 11.8 Plt Count (130-400) 10^3/uL 218 MPV (8.0-11.0) fL 9.6 Immature Gran % % 0.3 Neutrophils % % 61.0 Lymphocytes % % 27.0 Monocytes % % 10.4 Eosinophils % % 0.9 Basophils % % 0.4 Nucleated RBC % (0.0-0.3) % 0.0 Absolute Neutrophils (1.2-6.7) 10^3/uL 4.82 Absolute Lymphocytes (1.2-3.4) 10^3/uL 2.13 Absolute Monocytes (0.1-0.8) 10^3/uL 0.82 H Absolute Eosinophils (0.0-0.7) 10^3/uL 0.07 Absolute Basophils (0.0-0.2) 10^3/uL 0.03 Sodium (136-145) mmol/L 143 Potassium (3.5-5.1) mmol/L 3.7 Chloride (98-107) mmol/L 105 Carbon Dioxide (21.0-32.0) mmol/L 28.2 Anion Gap (3-11) mmol/L 9.8 BUN (7-18) mg/dL 13 Creatinine (0.55-1.02) mg/dL 0.5 L Est GFR (CKD-EPI 2020) (mL/min/1.73m2) 95.94 Glucose (74-106) mg/dL 89 Calcium (8.5-10.1) mg/dL 9.6 Magnesium (1.8-2.4) mg/dL 1.5 L Total Bilirubin (0.2-1.0) mg/dL 0.4 AST (15-37) U/L 21 ALT (14-59) U/L 29 Alkaline Phosphatase (46-116) U/L 83 Troponin I (<or=51) ng/L 7 Total Protein (6.4-8.2) g/dL 7.2 Albumin (3.4-5.0) g/dL 3.7 Medical Decision Making 1540 --80-year-old female with history of remote melanoma, chronic smoker, anxiety, here with complaint of listing to the right over the past 6 days, some tingling paresthesias bilateral anterior lower legs, intermittent headaches. Concern for central neurologic process including CVA versus consider metastatic disease. Plan to obtain MRI of the brain. I am also concerned with the potential for Warnicke's encephalopathy. I will give thiamine 100 mg IV. Initial labs reviewed and magnesium is low. I will replete with 1 g of magnesium. 1602 --MRI was interpreted by radiology: No acute process, no CVA, no lesion to explain symptoms. Small meningioma noted. Plan for discharge with outpatient follow-up with PCP and neurology. I will prescribe thiamine. All results were discussed with the patient. Usual customary discharge instructions were reviewed. Lab Data Lab results reviewed: Yes I reviewed the patient's lab results. Labs: Laboratory Tests Range/Units 03/06/25 14:23 WBC (4.4-10.8) 10^3/uL 7.89 RBC (3.93-5.22) 10^6/uL 4.01 Hgb (11.2-15.7) g/dL 12.7 Hct (36.0-46.0) % 38.0 MCV (80-95) fL 95 MCH (27.0-33.0) pg 31.7 MCHC (32.0-36.0) % 33.4 RDW (11.7-14.6) % 11.8 Plt Count (130-400) 10^3/uL 218 MPV (8.0-11.0) fL 9.6 Immature Gran % % 0.3 Neutrophils % % 61.0 Lymphocytes % % 27.0 Monocytes % % 10.4 Eosinophils % % 0.9 Basophils % % 0.4 Nucleated RBC % (0.0-0.3) % 0.0 Absolute Neutrophils (1.2-6.7) 10^3/uL 4.82 Absolute Lymphocytes (1.2-3.4) 10^3/uL 2.13 Absolute Monocytes (0.1-0.8) 10^3/uL 0.82 H Absolute Eosinophils (0.0-0.7) 10^3/uL 0.07 Absolute Basophils (0.0-0.2) 10^3/uL 0.03 Sodium (136-145) mmol/L 143 Potassium (3.5-5.1) mmol/L 3.7 Chloride (98-107) mmol/L 105 Carbon Dioxide (21.0-32.0) mmol/L 28.2 Anion Gap (3-11) mmol/L 9.8 BUN (7-18) mg/dL 13 Creatinine (0.55-1.02) mg/dL 0.5 L Est GFR (CKD-EPI 2020) (mL/min/1.73m2) 95.94 Glucose (74-106) mg/dL 89 Calcium (8.5-10.1) mg/dL 9.6 Magnesium (1.8-2.4) mg/dL 1.5 L Total Bilirubin (0.2-1.0) mg/dL 0.4 AST (15-37) U/L 21 ALT (14-59) U/L 29 Alkaline Phosphatase (46-116) U/L 83 Troponin I (<or=51) ng/L 7 Total Protein (6.4-8.2) g/dL 7.2 Albumin (3.4-5.0) g/dL 3.7 Ethyl Alcohol (<10) mg/dL < 3.0 PFSH All Active Problems (Updated 03/06/25 @ 15:48 by Kyler Smalls MD) Hypomagnesemia (Acute) Lightheadedness (Acute) Right inguinal hernia (Acute) Epigastric pain (Acute) Medical History History of adenomatous polyp of colon GERD (gastroesophageal reflux disease) History of melanoma Tobacco use disorder Urinary incontinence, mixed Malignant melanoma of left hip Dysplasia of cervix Anxiety Abnormal weight loss Urinary incontinence History of gastric ulcer Surgical History S/P inguinal hernia repair using synthetic patch Ligation of fallopian tube (~04/13/23) EGD (05/14/16) Dilation and curettage Colonoscopy - MAC (12/14/17) Social History Smoking/Tobacco Use Status: Current every day Tobacco Type: cigarettes Smoking risk assessment performed?: Yes Alcohol Intake: current Alcohol Intake frequency: 3 or more drinks per day Alcohol type: wine Drug use: Occasionally Substance use type: marijuana Housing: house Do you feel safe at home: Yes Do you feel safe in your relationship?: Yes PAWSS Have you Been Recently Intoxicated or Drunk Within the Last 30 days?: Yes Have you Ever Experienced Previous Episodes of Alcohol Withdrawal?: Yes Have you ever Experienced Withdrawal Seizures?: No Have you ever Experienced Delirium Tremens(DT)s?: Yes Have you ever undergone Alcohol Rehabilitation Treatment (i.e, inpt ot outpatient treatment programs)?: No Have you ever Experienced Blackouts?: Yes Have you ever Combined Alcohol with other Downers within the last 90 days?: No Have you ever Combined Alcohol with any other Substance of Abuse during the last 90 days?: No Positive Blood Alcohol level on Presentation? [PCS.BAL]: No Evidence of Increased Autonomic Activity (i.e. HR>120, tremor, sweating, agitation, nausea)?: No Result: 4
[2025-03-06] MEDS: MAGNESIUM SULFATE 1 GM/100 ML BAG IV_INF (15:58)
[2025-03-06] MEDS: THIAMINE 100 MG in Normal Saline 100 ML 200 MG IVPB (15:58)
[2025-03-06 16:55] LABS: Glucose Negative (Negative)
[2025-03-06 16:59] VITALS: BP 151/69; PULSE 63; RESP 20; O2SAT 98
[2025-03-06 17:03] LABS: C & S Indicated? No; WBC 0-2 HPF (0-5)
[2025-03-06 17:34] LABS: Cannabinoids THC Negative (Negative); METHADONE URINE SCREEN Negative (Negative)
== END 2025-03-06 16:59 | disposition home or self-care (01) ==
PROVIDERS: Emergency Provider Student in an Organized Health Care Education/Training Program; PCP Family Medicine
DX: R42 Dizziness and giddiness (principal); E83.42 Hypomagnesemia; R94.31 Abnormal electrocardiogram [ECG] [EKG]; F17.210 Nicotine dependence, cigarettes, uncomplicated; Z79.82 Long term (current) use of aspirin
CPT/HCPCS: 36415; 70553; 80053; 80307; 82962; 93005; 96365; 96368; 99285; 80320; 81003; 81015; 83735; 84484; 85025; 93010; J3411; J3475

== ENCOUNTER → 2025-08-01 00:49 | Outpatient (CLI) | payer MEDICARE, SELFPAY ==
--- NOTE | 2025-08-01 | DI.CTLCSR_ITS ---
Exam(s) CT CHEST LUNG CANCER SCREEN EXAM: CT CHEST LUNG CANCER SCREEN CLINICAL HISTORY: CIGARETTE SMOKER, F17.210,SCREENING FOR LUNG CA. TECHNIQUE: Imaging Protocol: Low Dose Technique CONTRAST MATERIAL: None COMPARISON: CT CT CHEST LUNG CANCER SCREEN from 07/04/2023 FINDINGS: CHEST: LUNGS: The previously described small area of ground-glass infiltrate in the left upper lobe exhibits minimal if any significant change. The previously described tiny 2-3 mm nodule in the left lower lobe also remains unchanged. There are no new pulmonary nodules nor pleural effusions. No new infiltrates evident.. No pleural effusions. MEDIASTINUM: There is no obvious hilar nor mediastinal adenopathy. CARDIAC: Heart size is normal. There is no pericardial effusion.Caliber of the thoracic aorta is within normal limits. OTHER: No adrenal masses. No ascites. Spleen size normal. OSSEOUS: No significant osseous lesions.. IMPRESSION: 1. There is continued stability of the previously described small area of ground-glass infiltrate in the left upper lobe and 3 millimeter left lower lobe nodule. 2. No new pulmonary findings. No pleural effusions. No intrathoracic adenopathy. 3. Lung RADS Cat 2 - Benign Appearance / Behavior: Nodules with a very low likelihood of becoming a clinically active cancer due to size or lack of growth Lung-RADS 1.0 CATEGORIES: Category 0 - Prior chest CT exam(s) being located for comparison. Category 1 - Annual screening in 12 months. No nodules or definitely benign nodules. Category 2 - Annual screening in 12 months. Benign appearance. Nodules with low likelihood of becoming active cancer. Category 3 - 6-month follow-up. Probably benign. Short-term follow-up suggested. Nodules with low likelihood of becoming active cancer. Category 4A - 3-month follow-up and CT/PET if >8 mm in size. Suspicious finding. Findings which require additional testing. Category 4B - Findings which require additional testing and tissue sampling. Category 4X - Category 3 or 4 nodules with additional features or imaging findings that increases the suspicion of malignancy. Modifier S- Potentially clinically significant findings (non lung cancer) RADIATION DOSE DELIVERED: 22.13mGy.cm Total DLP DATA REPOSITORY: All CT scans at this facility are submitted to the National Radiology Data Registry (NRDR) Dose Index Registry (DIR) with the [employer] ([employer]). RADIATION OPTIMIZATION: All CT scans at this facility use at least one of these dose optimization techniques: automated exposure control; mA and/or kV adjustment per patient size (includes targeted exams where dose is matched to clinical indication); or iterative reconstruction.
== END ==
PROVIDERS: PCP Family Medicine; Visit Provider Family Medicine
DX: Z12.2 Encounter for screening for malignant neoplasm of respiratory organs (principal); F17.210 Nicotine dependence, cigarettes, uncomplicated; R91.1 Solitary pulmonary nodule
CPT/HCPCS: 71271